=== PATIENT | female | born 1975 | race Caucasian/White ===

== ENCOUNTER 2016-05-19 13:06 | Emergency (ER) | payer MEDICAID, OTHER ==
[~2016-05-19] VITALS: Ht 167.6 cm; Wt 130.0 kg
[~2016-05-19 13:06] MED LIST: BACT800T5 PO; HYDR-3533 PO; ZOFR4TAB3 SL
[2016-05-19 13:08] VITALS: BP 143/91; PULSE 113; RESP 14; TEMP 97.9; O2SAT 98
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
[2016-05-19 14:41] LABS: BETA HCG QUANT 97289 MIU/ML (0-5)
[2016-05-19 15:46] VITALS: BP 111/62; PULSE 81; RESP 16; O2SAT 99
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
[2016-05-19 17:10] VITALS: BP 110/71; TEMP 97.8
[2016-07-21] MEDS ORDERED: PREN27TA PO (10:34)
[2016-07-21] MEDS ORDERED: ASPI-110 PO (10:34)
[2016-07-21] MEDS ORDERED: CALC500T35 PO (10:34)
[2016-07-28] MEDS ORDERED: ASPI81CH3 CHEW (17:35)
== END 2016-05-19 17:10 | disposition home or self-care (01) ==
LOC: NEPC 13:06
DX: O26.891 Other specified pregnancy related conditions, first trimester (principal); R51 Headache; M54.5 Low back pain; Z04.1 Encounter for examination and observation following transport accident
CPT/HCPCS: 76801; 84702

== ENCOUNTER → 2016-07-19 | Outpatient (CLI) | payer MEDICAID ==
[~2016-07-19] MED LIST changes: +ASPI-110 PO; +ASPI81CH3 CHEW; -BACT800T5 PO; +CALC500T35 PO; -HYDR-3533 PO; +NITR1CAP36 PO; +PREN27TA PO; -ZOFR4TAB3 SL
== END ==
LOC: HPND 10:06
PROVIDERS: ATTEND Family Medicine
DX: Z33.1 Pregnant state, incidental (principal); Z36 Encounter for antenatal screening of mother
CPT/HCPCS: 76811

== ENCOUNTER → 2016-08-01 | Outpatient (CLI) | payer MEDICAID ==
[~2016-08-01] MED LIST changes: -ASPI-110 PO
== END ==
LOC: HPND 09:33
PROVIDERS: ATTEND Family Medicine
DX: O09.522 Supervision of elderly multigravida, second trimester (principal); O28.0 Abnormal hematological finding on antenatal screening of mother
CPT/HCPCS: 76815; 76825; 76827; 93325

== ENCOUNTER → 2016-08-14 | Outpatient (CLI) | payer MEDICAID | LOC: HPND 10:52 | PROVIDERS: ATTEND Family Medicine | DX: O99.512 Diseases of the respiratory system complicating pregnancy, second trimester (principal); O09.522 Supervision of elderly multigravida, second trimester; E66.01 Morbid (severe) obesity due to excess calories; Z68.41 Body mass index [BMI] 40.0-44.9, adult | CPT/HCPCS: 76816 ==

== ENCOUNTER 2016-09-04 21:17 | Emergency (ER) | payer MEDICAID ==
[~2016-09-04 21:17] MED LIST changes: -NITR1CAP36 PO
[2016-09-04 21:30] VITALS: PULSE 112
[2016-09-04 21:31] VITALS: RESP 18
[2016-09-04 21:35] VITALS: PULSE 110; TEMP 98.1
[2016-09-04 21:36] VITALS: BP 129/71; PULSE 110
--- NOTE | 2016-09-04 22:05 | PD ---
HPI Chief Complaint decreased movement Date Seen: September 04, 2016 Travel History International Travel<30 Days: No Contact w/Intl Traveler<30Days: No Known Affected Area: No History of Present Illness HPI This is a 41y/o at 26w1d who presented to [facility] in [facility] with c/o decreased movements. Labs and ua were obtained, significant only for + Ketones. She was transferred here as there are no OB services ath that hospital. Pt denies vaginal bleeding or leakage of fluid with reports of active movements now. care at the the resident clinic, care complicated by: 1. AMA 2. proteinuria Para: 4 : 6 Miscarriage: 1 History Past Medical History Medical History: Denies Significant Hx Obstetric History Obstetric History 5 FT Past Surgical History Narrative Surgical T&A age 5 Mass excision left foot in 2007 Family History Family History: Negative Social History Alcohol Use: No Tobacco Use: No Substance Abuse: No Allergies-Medications (Allergen,Severity, Reaction): Coded Allergies: Penicillin (Verified Allergy, Severe, ANAPYHLAXIS, 09/01/16) Latex (Verified Allergy, Unknown, Rash, 09/01/16) Home Meds Active Scripts Aspirin (Aspirin 81 Low Dose)81 Mg Chew81 Mg CHEW DAILY #30 TAB Prov:Celso Leo MD R2 07/28/16 Oyster Shell (Calcium)500 Mg Tab1 Tab PO BID #60 TAB Ref 3 Prov:Celso Leo MD R2 07/21/16 Vit W/ Ferrous Fumara ( 27-0.8 mg)1 Tab Tab1 Tab PO DAILY #30 TAB Prov:Celso Leo MD R2 07/21/16 Review of Systems Except as stated in HPI: all other systems reviewed are Neg Physical Exam Vital Signs Date Time Temp Pulse Resp B/P Pulse Ox O2 Delivery O2 Flow Rate FiO2 09/04/16 21:36 110 129/71 09/04/16 21:35 110 09/04/16 21:35 98.1 09/04/16 21:31 18 09/04/16 21:30 112 Narrative GENERAL: Well-nourished, well-developed patient. SKIN: Warm and dry. HEAD: Normocephalic and atraumatic. EYES: No scleral icterus. No injection or drainage. ENT: No nasal drainage noted. Mucous membranes pink. Airway patent. NECK: Supple, trachea midline. No JVD. CARDIOVASCULAR: Regular rate and rhythm without murmurs, gallops, or rubs. RESPIRATORY: Breath sounds equal bilaterally. No accessory muscle use. BREASTS: Bilateral exam showed no masses , no retractions, no nipple discharge. ABDOMEN/GI: Abdomen soft, non-tender, bowel sounds present, no rebound, no guarding Gravid to 25 weeks size GENITOURINARY: VE Deferred FHT's: Category: appropriate for gestational age Contractions: none EXTREMITIES: No cyanosis or edema. BACK: Nontender without obvious deformity. No CVA tenderness. NEUROLOGICAL: Awake and alert. Motor and sensory grossly within normal limits. Five out of 5 muscle strength in all muscle groups. Normal speech. Data Data Vital Signs Reviewed: Yes Orders Vital Signs (Adult) .ON ADMISSION (09/04/16 21:19) ^ Labor Status (09/04/16 21:19) ^ Non Stress Test (09/04/16 21:19) MDM Medical Record Reviewed: No Interpretation(s) 41y/o at 26w1d who presents for evaluation of decreased movements. -reassuring status, active fetus on monitor -no evidence of PTL Plan d/c home increased po fluids discussed kick count in depth Diagnosis Diagnosis: Primary Impression: Decreased movement affecting management of in second trimester Qualified Code: O36.8120 - Decreased movement affecting management of in second trimester, not applicable or unspecified fetus Additional Impressions: Advanced maternal age in multigravida Qualified Code: O09.522 - Advanced maternal age in multigravida, second trimester Grand multipara in labor in second trimester Disposition: 01 DISCHARGE HOME Patient Instructions: Movement (ED) Sol Durand MD September 04, 2016 22:04
== END 2016-09-04 21:59 | disposition home or self-care (01) ==
LOC: HOBED 21:17
DX: O36.8120 Decreased fetal movements, second trimester, not applicable or unspecified (principal); Z3A.26 26 weeks gestation of pregnancy
CPT/HCPCS: 99284

== ENCOUNTER → 2016-09-11 | Outpatient (CLI) | payer MEDICAID ==
[~2016-09-11] MED LIST changes: +NITR1CAP36 PO
== END ==
LOC: HPND 10:28
PROVIDERS: ATTEND Family Medicine
DX: O09.522 Supervision of elderly multigravida, second trimester (principal); O09.512 Supervision of elderly primigravida, second trimester; E66.01 Morbid (severe) obesity due to excess calories; Z68.41 Body mass index [BMI] 40.0-44.9, adult; Z3A.30 30 weeks gestation of pregnancy
CPT/HCPCS: 76816

== ENCOUNTER → 2016-10-09 | Outpatient (CLI) | payer MEDICAID | LOC: HPND 10:12 | PROVIDERS: ATTEND Family Medicine | DX: O09.523 Supervision of elderly multigravida, third trimester (principal); O24.419 Gestational diabetes mellitus in pregnancy, unspecified control; O99.213 Obesity complicating pregnancy, third trimester; E66.01 Morbid (severe) obesity due to excess calories; Z68.41 Body mass index [BMI] 40.0-44.9, adult; Z3A.31 31 weeks gestation of pregnancy | CPT/HCPCS: 76816 ==

== ENCOUNTER 2016-10-11 11:42 | Emergency (ER) | payer MEDICAID ==
[2016-10-11] VITALS (8 sets, daily range): BP systolic 115–148; BP diastolic 69–106; PULSE 106–127; RESP 17–18; TEMP 98.2
[~2016-10-11 11:42] MED LIST changes: -NITR1CAP36 PO
--- NOTE | 2016-10-11 12:27 | PD ---
HPI Chief Complaint Protein in urine Date Seen: Oct 11, 2016 Time Seen: 12:18 (Roz Grullon MD R1) Travel History International Travel<30 Days: No Contact w/Intl Traveler<30Days: No (Roz Grullon MD R1) History of Present Illness HPI Patient is a 41-year-old at 313/7 weeks today, who was sent over from the [facility] clinic by Dr. Matt Leo due to protein in the urine and steadily rising blood pressures and office visits. BP in office today was 134/78. Patient states she had a headache last night for which she took an aspirin and went to bed. She denies any vision changes, shortness of breath, chest pain, nausea, vomiting, right upper quadrant pain. She has been across the entire upper abdomen, intermittent, sharp. She endorses hand and feet swelling, with no acute changes. She has a BP machine at home and noted the most recent highest blood pressure to be 148/78. care has been complicated by gestational diabetes which is diet controlled, and a cardiac murmur. The patient is on 81 mg aspirin daily and vitamins. (Roz Grullon MD R1) History Past Medical History Narrative Medical Cardiac murmur (Roz Grullon MD R1) Obstetric History Obstetric History 4 term vaginal deliveries One elective (Roz Grullon MD R1) Past Surgical History Narrative Surgical Tonsillectomy, ear tubes, adenoidectomy (Roz Grullon MD R1) Family History Narrative Family History Mother with heart disease, maternal and paternal grandparents with diabetes ( Roz Grullon MD R1) Social History Alcohol Use: No Tobacco Use: No Substance Abuse: No (Roz Grullon MD R1) Allergies-Medications (Allergen,Severity, Reaction): Coded Allergies: Penicillin (Verified Allergy, Severe, ANAPYHLAXIS, 10/11/16) Latex (Verified Allergy, Unknown, Rash, 10/11/16) Home Meds Active Scripts Nitrofurantoin Macrocrystal 100 Mg Ajy220 Mg PO QID #28 CAP Ref 0 Prov:Roz Grullon MD R1 10/11/16 Aspirin (Aspirin 81 Low Dose)81 Mg Chew81 Mg CHEW DAILY #30 TAB Prov:Celso Leo MD R2 07/28/16 Oyster Shell (Calcium)500 Mg Tab1 Tab PO BID #60 TAB Ref 3 Prov:Celso Leo MD R2 07/21/16 Vit W/ Ferrous Fumara ( 27-0.8 mg)1 Tab Tab1 Tab PO DAILY #30 TAB Prov:Celso Leo MD R2 07/21/16 Review of Systems Except as stated in HPI: all other systems reviewed are Neg (Roz Grullon MD R1) Physical Exam Vital Signs Date Time Temp Pulse Resp B/P Pulse Ox O2 Delivery O2 Flow Rate FiO2 10/11/16 12:00 18 10/11/16 11:59 127 148/78 10/11/16 11:57 124 144/106 Narrative GENERAL: Well-nourished, well-developed female in no apparent distress. Obese. SKIN: Warm and dry. No rashes. HEAD: Normocephalic and atraumatic. EYES: No scleral icterus. No injection or drainage. ENT: No nasal drainage noted. Mucous membranes pink. Airway patent. NECK: Supple, trachea midline. No JVD. CARDIOVASCULAR: Regular rate and rhythm without murmurs, gallops, or rubs. RESPIRATORY: Breath sounds equal bilaterally. No accessory muscle use. ABDOMEN/GI: Abdomen obese, gravid, nontender. No rebound or guarding. GENITOURINARY: Deferred External Genitalia: intact and normal in appearance Uterine Contractions: Absent FHT's: Category: 1 Baseline: 130 Reactive:150 Variability: mod Decels: absent EXTREMITIES: No cyanosis or edema. BACK: Nontender without obvious deformity. No CVA tenderness. NEUROLOGICAL: Awake and alert. Motor and sensory grossly within normal limits. Five out of 5 muscle strength in all muscle groups. Normal speech. (Roz Grullon MD R1) Data Data Vital Signs Reviewed: Yes (BP 148/78, pulse 127) Orders Vital Signs (Adult) .ON ADMISSION (10/11/16 11:56) ^ Labor Status (10/11/16 11:56) Urinalysis - C+S If Indicated (10/11/16 11:56) ^ Non Stress Test (10/11/16 11:56) ^ Hydration (10/11/16 11:56) Cbc No Diff, Includes Plts (10/11/16 11:56) Comprehensive Metabolic Panel (10/11/16 11:56) Uric Acid (10/11/16 11:56) Protein Creat Ratio, Random Ur (10/11/16 11:57) (Roz Grullon MD R1) MDM Medical Record Reviewed: Yes Narrative Course / MDM 41-year-old at 31 and 3/7 weeks, EDC 12/10/16, with GDM who presents from the office for further workup of protein in urine and elevated blood pressure. Intrauterine : Category 1 tracing No contractions Monitor heart tones Routine care Gestational Hypertension Blood pressures normally 120s/70s noted to be 148/78 at home and 130s/80s in office today. She notes a resolved headache last night. Repeat BPs in the 110s/80s range, within normal limits Rule out preeclampsia: CBC within normal limits, CMP within normal limits, urinalysis consistent with UTI, urine protein/creatinine elevated at 0.22, uric acid within normal Serial BP monitoring recommended home with her home blood pressure monitor 24 hour urine protein indicated. She has had this done at approximately 20 weeks gestation, not diagnostic. Will treat for UTI and recommended ordering 24 hour protein as outpatient and rechecking urine protein/creatinine ratio Urinary tract infection Based on urine notable for moderate leukocyte esterase, 18 WBCs, moderate bacteria Will treat with Macrobid 100 mg 4 times a day for 7 days Gestational diabetes Diet-controlled Counseled on importance of checking blood sugars Seen and discussed with Dr. Durand (Roz Grullon MD R1) Attending Attestation Pt seen and evaluated, labs reviewed. BPs significantly elevated from clinic values. Large cuff used and BPs: 116/69, 115/72, in range with clinic values. Pt with 24h urine collection in 06/2016, would recommend repeat soon. Would need workup for proteinuria. (Sol Durand MD) Diagnosis Diagnosis: Primary Impression: Hypertension affecting in third trimester Additional Impression: Urine protein increased Disposition: 01 DISCHARGE HOME Condition: Stable Scripts Nitrofurantoin Macrocrystal 100 Mg [id number] Mg PO QID #28 CAP Ref 0 Prov:Roz Grullon MD R1 10/11/16 Patient Instructions: Preeclampsia (ED) Roz Grullon MD R1 Oct 11, 2016 12:27 Sol Durand MD Oct 11, 2016 15:27
[2016-10-11 12:40] LABS: HEMATOCRIT 33.5 % (35.0-46.0); MEAN CELL VOLUME 75.8 FL (80.0-100.0); MEAN CORPUSCULAR HEMOGLOBIN 24.4 PG (27.0-34.0); MEAN CORPUSCULAR HGB CONC 32.2 % (32.0-36.0); PLATELET COUNT 208 TH/MM3 (150-450); RED BLOOD COUNT 4.42 MIL/MM3 (4.00-5.30); RED CELL DISTRIBUTION WIDTH 16.2 % (11.6-17.2); REVIEW FLAG FINAL; WHITE BLOOD COUNT 8.7 TH/MM3 (4.0-11.0)
[2016-10-11 13:02] LABS: ANION GAP 9 MEQ/L (5-15); AST (GOT) 24 U/L (15-37); BICARBONATE 22.5 MEQ/L (21.0-32.0); BLOOD UREA NITROGEN 7 MG/DL (7-18); CHLORIDE 109 MEQ/L (98-107); GLOMERULAR FILTRATION RATE 112 ML/MIN (>89); POTASSIUM 4.3 MEQ/L (3.5-5.1); SODIUM (NA) 140 MEQ/L (136-145); URIC ACID 3.6 MG/DL (2.6-6.0)
[2016-10-11 13:05] LABS: ALKALINE PHOSPHATASE 91 U/L (45-117); ALT (GPT) 20 U/L (10-53); TOTAL BILIRUBIN ADULT 0.2 MG/DL (0.2-1.0)
[2016-10-11 13:41] LABS: BACTERIA, URINE MOD /hpf; BLOOD, URINE MOD (NEG); CALCIUM OXALATE CRYSTALS,URINE MOD /hpf; COMMENT (UR) CULTURE INDICATED; CULTURE IF INDICATED CULTURE INDICATED; GLUCOSE,URINE TRACE mg/dL (NEG); KETONE, URINE NEG (NEG); MUCUS URINE FEW /lpf (OCC); NITRITE,URINE NEG (NEG); SQUAMOUS EPITHELIAL CELL URINE 11 /hpf (0-5); URINE COLOR YELLOW (YELLW/STRAW)
[2016-10-11] MEDS ORDERED: NITR1CAP36 PO (14:35)
== END 2016-10-11 15:06 | disposition home or self-care (01) ==
LOC: HOBED 11:42
DX: O16.3 Unspecified maternal hypertension, third trimester (principal); O12.13 Gestational proteinuria, third trimester; O24.419 Gestational diabetes mellitus in pregnancy, unspecified control; O23.43 Unspecified infection of urinary tract in pregnancy, third trimester; M79.89 Other specified soft tissue disorders; R01.1 Cardiac murmur, unspecified; Z3A.31 31 weeks gestation of pregnancy; Z79.899 Other long term (current) drug therapy; Z79.82 Long term (current) use of aspirin
CPT/HCPCS: 80053; 81001; 82570; 84156; 84550; 85027; 87086; 99284

== ENCOUNTER → 2016-11-06 | Outpatient (CLI) | payer MEDICAID | LOC: HPND 13:24 | PROVIDERS: ATTEND Family Medicine | DX: O09.523 Supervision of elderly multigravida, third trimester (principal); O24.410 Gestational diabetes mellitus in pregnancy, diet controlled; O99.213 Obesity complicating pregnancy, third trimester; E66.01 Morbid (severe) obesity due to excess calories; Z68.41 Body mass index [BMI] 40.0-44.9, adult | CPT/HCPCS: 76816 ==

== ENCOUNTER 2016-11-23 13:24 | Observation (INO) | payer MEDICAID ==
[2016-11-23] MEDS ORDERED: LACTATED RINGER'S 1000 ML INJ 1,000 ML IV SCH (13:44)
[2016-11-23] MEDS ORDERED: TERBUTALINE INJ 1 MG/ML AMP SQ ONE (13:45)
--- NOTE | 2016-11-23 15:12 | HHI.HP ---
History & Physical H&P S: Patient is a 41-year-old at 37 weeks and 4 days who presents for external version. She gets her care with Dr. Matt Leo. Patient just had an appointment with Dr. Leo and then an appointment with OB diagnostics, where she had an ultrasound that showed a transverse lie. Of note, patient does take a baby aspirin daily. O: Gen.: Obese female lying in bed in no acute distress GI: Obese gravid abdomen : Irregular mild contractions as frequently as about every 2 minutes noted. Category 1 tracing with baseline of 130 bpm, good reactivity, moderate variability, no decelerations noted. Imaging: Bedside ultrasound performed which showed transverse lie with baby's head in the upper right quadrant and an baby's butt in the left upper quadrant. A/P: Patient is a 41-year-old at 37 weeks and 4 days with a history of gestational diabetes, hypertension who presents for external version. 1. Transverse lie CBC, type and screen LR IV Terbutaline 0.25 mg subcutaneous 1 Fentanyl if needed Monitor heart rate Monitor labor status Monitor vital signs 2. UTI on UA Discharged with prescription for Macrobid 100 mg by mouth twice a day for 7 days 3. History of hypertension CMP, uric acid, UA, bp monitoring 4. Diet-controlled gestational diabetes Blood glucose monitoring Addendum: External version performed by Dr. Villagran was successful. position confirmed to be vertex by bedside ultrasound. Plan to continue observation and monitoring. Will repeat bedside ultrasound prior to discharge. Cervical exam was long, thick, and closed. Second addendum: Repeat US showed that baby flipped back to breech position. - repeat US in a week - if still breech, can repeat external version. If baby flips to vertex, can offer IOL. Patient seen and discussed with Dr. Villagran. D/w Dr. Leo. David Gonzales MD R1 Nov 23, 2016 15:12
[2016-11-23 15:15] VITALS: RESP 17
[2016-11-23 15:34] LABS: HEMATOCRIT 34.7 % (35.0-46.0); MEAN CELL VOLUME 72.8 FL (80.0-100.0); MEAN CORPUSCULAR HEMOGLOBIN 22.9 PG (27.0-34.0); MEAN CORPUSCULAR HGB CONC 31.5 % (32.0-36.0); PLATELET COUNT 173 TH/MM3 (150-450); RED BLOOD COUNT 4.77 MIL/MM3 (4.00-5.30); RED CELL DISTRIBUTION WIDTH 18.3 % (11.6-17.2); REVIEW FLAG FINAL; WHITE BLOOD COUNT 9.2 TH/MM3 (4.0-11.0)
[2016-11-23 15:48] LABS: BACTERIA, URINE MANY /hpf; BLOOD, URINE SMALL (NEG); CALCIUM OXALATE CRYSTALS,URINE RARE /hpf; COMMENT (UR) CULTURE INDICATED; CULTURE IF INDICATED CULTURE INDICATED; GLUCOSE,URINE TRACE mg/dL (NEG); KETONE, URINE 40 mg/dL (NEG); MUCUS URINE MANY /lpf (OCC); NITRITE,URINE NEG (NEG); SQUAMOUS EPITHELIAL CELL URINE 34 /hpf (0-5); TRANSITIONAL EPI CELLS, URINE 2 /hpf; URINE COLOR ORANGE (YELLW/STRAW)
[2016-11-23 15:50] LABS: ALT (GPT) 14 U/L (10-53); ANION GAP 12 MEQ/L (5-15); AST (GOT) 20 U/L (15-37); BICARBONATE 21.4 MEQ/L (21.0-32.0); BLOOD UREA NITROGEN 8 MG/DL (7-18); CHLORIDE 107 MEQ/L (98-107); GLOMERULAR FILTRATION RATE 86 ML/MIN (>89); POTASSIUM 4.1 MEQ/L (3.5-5.1); SODIUM (NA) 140 MEQ/L (136-145)
[2016-11-23 15:53] LABS: ALKALINE PHOSPHATASE 144 U/L (45-117); TOTAL BILIRUBIN ADULT 0.3 MG/DL (0.2-1.0)
[2016-11-23] MEDS ORDERED: NITR1CAP36 PO (15:54)
--- NOTE | 2016-11-23 15:56 | HHI.DCPOC ---
Discharge Care Plan Diagnosis: (1) Transverse lie of fetus Report Symptoms to Your Doctor -Temperature above 100.5 degrees -Redness, of incision or excessive or foul smelling drainage -Unusual pain or calf pain -Increased vaginal bleeding -Painful or difficulty urinating -Feelings of extreme sadness or anxiety after 2 weeks Goals to Promote Your Health * To prevent worsening of your condition and complications, please take your medications as prescribed. * To maintain your health at the optimal level, please follow up with your doctor. Directions to Meet Your Goals Take your medications as prescribed Follow your dietary instruction Follow activity as directed Ensure plenty of rest for recovery Drink fluids for hydration Keep your appointments as scheduled Take your immunizations and boosters as scheduled If your symptoms worsen call your PCP, if no PCP go to Urgent Care Center or Emergency Room Smoking is Dangerous to Your Health. Avoid second hand smoke Call the 24-hour crisis hotline for domestic abuse at David Gonzales MD R1 Nov 23, 2016 15:56
[2016-11-23 16:00] VITALS: BP 152/84; PULSE 95; RESP 18
[2016-11-23 16:08] LABS: URIC ACID 5.1 MG/DL (2.6-6.0)
--- NOTE | 2016-11-23 16:30 | PD.CONS ---
History & Physical H&P Patient 41-year-old white female at 37 weeks 4 days referred from the family medicine clinic for external cephalic version or breech, ultrasound patient baby transverse with head to the right repeat ultrasound showed breech. Her on OB ED baby is in a backup transverse lie. Head to The right with only small parts and lower uterine segment normal heart rate reactive NST noted patient has polyhydramnios and gestational diabetes with diet control. Ultrasound done and confirmed position. Patient was given subcutaneous terbutaline to relax the uterus. IV access noted. This laboratory done CBCs type and screen, CBC is within normal limits. Procedure-external cephalic version done under ultrasound guidance with movement of the right sided the head in the right upper quadrant down into the mid and then lower uterine segment. Pressure on the baby's bottom pushed that structure up into the fundus and the head went in the lower uterine segment without difficulty. NST was done after which is reactive , and the ultrasound prior to the patient being discharged be done to confirm baby still cephalic presentation. Joseph Villagran II, MD Nov 23, 2016 16:29
== END 2016-11-23 17:31 | disposition home or self-care (01) ==
LOC: H2EB 13:24
PROVIDERS: ADMIT Obstetrics & Gynecology Maternal & Fetal Medicine; ATTEND Obstetrics & Gynecology Maternal & Fetal Medicine
DX: O32.2XX0 Maternal care for transverse and oblique lie, not applicable or unspecified (principal); O99.344 Other mental disorders complicating childbirth; F41.9 Anxiety disorder, unspecified; O09.523 Supervision of elderly multigravida, third trimester; O24.410 Gestational diabetes mellitus in pregnancy, diet controlled; O23.43 Unspecified infection of urinary tract in pregnancy, third trimester; O16.3 Unspecified maternal hypertension, third trimester; Z3A.37 37 weeks gestation of pregnancy
CPT/HCPCS: 80053; 81001; 84550; 85027; 86850; 86900; 86901; 87086; G0378; J3105; J7120

== ENCOUNTER 2016-11-30 13:27 | Inpatient (IN) | payer MEDICAID ==
[~2016-11-30] VITALS: Ht 167.6 cm; Wt 130.6 kg
[2016-11-30] VITALS (13 sets, daily range): BP systolic 106–169; BP diastolic 73–82; PULSE 100–110; RESP 18; TEMP 98–98.4
[~2016-11-30 13:27] MED LIST changes: +NITR1CAP36 PO
[2016-11-30] MEDS ORDERED: TERBUTALINE INJ 1 MG/ML AMP SQ ONE (15:30)
[2016-11-30 15:56] LABS: ALT (GPT) 16 U/L (10-53); ANION GAP 10 MEQ/L (5-15); AST (GOT) 22 U/L (15-37); BICARBONATE 19.6 MEQ/L (21.0-32.0); BLOOD UREA NITROGEN 7 MG/DL (7-18); CHLORIDE 110 MEQ/L (98-107); GLOMERULAR FILTRATION RATE 112 ML/MIN (>89); POTASSIUM 3.9 MEQ/L (3.5-5.1); SODIUM (NA) 140 MEQ/L (136-145)
[2016-11-30 15:58] LABS: ALKALINE PHOSPHATASE 142 U/L (45-117); TOTAL BILIRUBIN ADULT 0.3 MG/DL (0.2-1.0)
[2016-11-30] MEDS ORDERED: LACTATED RINGER'S 1000 ML INJ 1,000 ML IV PRN (16:19)
[2016-11-30] MEDS: LACTATED RINGER'S 1000 ML INJ 1,000 ML IV SCH ×2 (16:19→17:44)
[2016-11-30] MEDS ORDERED: CITRIC ACID-SODIUM CITRATE LIQ 30 ML UDC PO SCH (16:30)
[2016-11-30] MEDS ORDERED: LIDOCAINE HCL 1% 50 ML VIAL I-DERMAL PRN (16:30)
[2016-11-30] MEDS ORDERED: SODIUM CHLORID 0.9% 500 ML INJ 500 ML IV PRN (16:30)
[2016-11-30] MEDS ORDERED: OXYTOCIN 30 UNITS-500ML PREMIX 500 ML IV SCH ×3 (16:30)
[2016-11-30] MEDS ORDERED: ONDANSETRON HCL 4 MG/2 ML VIAL IV PRN (16:30)
[2016-11-30] MEDS ORDERED: SODIUM CHLOR 0.9% 1000 ML INJ 1,000 ML IV PRN (16:39)
--- NOTE | 2016-11-30 16:41 | HHI.HP ---
History & Physical H&P History & Physical History & Physical H&P S: Patient is a 41-year-old at 38 weeks and 4 days who presents for external version. External version was attempted last week; version was successful but baby moved back to transverse position before discharge. Patient returns today for second attempt. Of note, she gets her care with Dr. Matt Leo. Patient does take a baby aspirin daily. O: Blood pressure 124/69 Gen.: Obese female lying in bed in no acute distress GI: Obese gravid abdomen : Contractions q6min; category 1 tracing with baseline of 125 bpm, good reactivity, moderate variability, no decelerations noted. Imaging: Bedside ultrasound performed which showed transverse lie with baby's head in the upper right quadrant and an baby's butt in the left upper quadrant. A/P: Patient is a 41-year-old at 38 weeks and 4 days with a history of gestational diabetes, hypertension who presents for external version. 1. Transverse lie CBC, type and screen LR IV Terbutaline 0.25 mg subcutaneous 1 Fentanyl if needed Monitor heart rate Monitor labor status Monitor vital signs 2. History of hypertension CMP, UA, bp monitoring 3. Diet-controlled gestational diabetes Blood glucose monitoring Patient seen and discussed with Dr. Villagran. D/w Dr. Leo. Lindsey Darden MD R1 Nov 30, 2016 16:41
[2016-11-30 16:47] LABS: BACTERIA, URINE FEW /hpf; BLOOD, URINE NEG (NEG); COMMENT (UR) CULT NOT INDICATED; CULTURE IF INDICATED CULT NOT INDICATED; GLUCOSE,URINE NEG (NEG); KETONE, URINE 40 mg/dL (NEG); MUCUS URINE FEW /lpf (OCC); NITRITE,URINE NEG (NEG); SQUAMOUS EPITHELIAL CELL URINE 7 /hpf (0-5); URINE COLOR YELLOW (YELLW/STRAW)
[2016-11-30 18:00] LABS: AUTOMATED NEUTROPHIL # 6.7 TH/MM3 (1.8-7.7); BASOPHIL % 0.2 % (0.0-2.0); EOSINOPHIL % 0.2 % (0.0-4.0); HEMATOCRIT 30.9 % (35.0-46.0); HEMO FLAGS DIFF FINAL; LYMPH % 18.1 % (9.0-44.0); LYMPHOCYTE # 1.6 TH/MM3 (1.0-4.8); MEAN CELL VOLUME 71.4 FL (80.0-100.0); MEAN CORPUSCULAR HEMOGLOBIN 23.2 PG (27.0-34.0); MEAN CORPUSCULAR HGB CONC 32.5 % (32.0-36.0); MONO % 6.1 % (0.0-8.0); NEUT % 75.4 % (16.0-70.0); PLATELET COUNT 150 TH/MM3 (150-450); RED BLOOD COUNT 4.33 MIL/MM3 (4.00-5.30); RED CELL DISTRIBUTION WIDTH 18.5 % (11.6-17.2); WHITE BLOOD COUNT 8.9 TH/MM3 (4.0-11.0)
[2016-11-30] MEDS ORDERED: hydrALAZINE HCL 20 MG/ML VIAL ONE (18:39)
[2016-11-30] MEDS ORDERED: hydrALAZINE HCL 20 MG/ML VIAL IV PUSH ONE (19:00)
--- NOTE | 2016-11-30 19:11 | PD.LABORPN ---
Subjective Subjective Is a procedure note this patient done at approximately 4 PM today External cephalic version Patient was breech to backup transverse lie, presented confirm this earlier in the day. Positive polyhydramnios. Patient greatly desires a vaginal delivery and does not want a at this time. This baby on ultrasound is approximately 10 pounds, and last week we did a successful version but only for an hour and the baby flipped back breech, the patient will have to wait at least a week when she is 38 and half weeks to retry and that is what we did today. Patient was placed in the bathroom ultrasound brought and ultrasound confirmed the baby in a backup transverse lie with the head to the maternal right upper quadrant. External version was performed by moving the baby's head down in the abdomen toward the right lower quadrant and holding the baby's bottom steady while the head was forced into the pelvis this was done without the extreme effort. And was tolerated well by the patient. The baby's head was in the pelvis was we performed artificial rupture the membranes with copious clear fluid noted cervix was forced open he was initially closed was forced open to fingertip to allow rupture the membranes heart rate tracing is reactive before and after the procedure. An ultrasound confirmed the baby was in a cephalic presentation after the procedure. Begin labor induction Objective Vital Signs Vital Signs Date Time Temp Pulse Resp B/P Pulse Ox O2 Delivery O2 Flow Rate FiO2 11/30/16 18:55 151/78 11/30/16 18:50 154/73 11/30/16 18:20 103 18 169/81 11/30/16 17:20 105 18 142/75 11/30/16 15:20 98.4 100 18 Objective Pelvic Exam: Cervix: [-] Dilatation: [-] Effacement: [-] Station: [-] Presentation: [-] Membranes: [intact or ruptured] Uterine Contractions: [-] FHT's: Category: [-] Baseline: [-] Reactive: [-] Variability: [-] Decels: [-] Joseph Villagran II, MD Nov 30, 2016 19:11
--- NOTE | 2016-11-30 22:19 | PD.LABORPN ---
Subjective Subjective Patient lying comfortably in bed. Feeling contractions. She is eager to eat her chicken broth. She does not have any specific complaints at this time. Objective Vital Signs Vital Signs Date Time Temp Pulse Resp B/P Pulse Ox O2 Delivery O2 Flow Rate FiO2 11/30/16 22:02 18 11/30/16 21:14 18 11/30/16 20:50 18 11/30/16 20:05 18 11/30/16 19:35 144/80 11/30/16 19:35 100 18 11/30/16 19:20 18 11/30/16 19:20 98.0 11/30/16 18:55 151/78 11/30/16 18:50 154/73 11/30/16 18:20 103 18 169/81 11/30/16 17:20 105 18 142/75 11/30/16 15:20 98.4 100 18 Objective Pelvic Exam: Cervix: [-] Dilatation: 0-1 Effacement: [-] Station: [-] Presentation: vertex Membranes: ruptured Uterine Contractions: q2-3m FHT's: Category: I Baseline: 120s Reactive: yes Variability: mod Decels: none Assessment/Plan Assessment and Plan Very pleasant 41 year old woman at 38/4 weeks gestation with a history of gestational diabetes, hypertension presented for external version and admitted to L&D. 1. IUP - Category I tracing - Contractions q2-3m - Cervix 0-1 cm, s/p AROM - GBS negative - US performed by Dr. Villagran at 21:00 demonstrating vertex position - Continue expectant management Hay Art MD R2 Nov 30, 2016 22:19
[2016-12-01] VITALS (41 sets, daily range): BP systolic 99–164; BP diastolic 64–91; PULSE 80–121; RESP 18; TEMP 98.1–99
[2016-12-01] MEDS ORDERED: fentaNYL 2MCG-BUPIV 0.125% INJ 100 ML ONE ×2 (00:58→05:26)
[2016-12-01] MEDS ORDERED: ePHEDrine/NS 25 MG/5 ML SYR ONE (00:59)
[2016-12-01] MEDS ORDERED: TERBUTALINE INJ 1 MG/ML AMP ONE (07:39)
[2016-12-01 08:15] LABS: BLOOD GAS BASE EXCESS -11.8 mmol/L (-2-2); BLOOD GAS O2 HGB SATURATION 18 % (90-100); CORD BLOOD GAS HCO3 17 mmol/L (21-29); CORD BLOOD GAS PCO2 65 mmHG (34-78); CORD BLOOD GAS PH 7.05 (7.14-7.42); CORD BLOOD GAS PO2 17 mmHG (3.0-40.0); DRAW SITE CORD BLOOD; STAT NO
--- NOTE | 2016-12-01 08:23 | PD.OB.DELI ---
Anesthesia: Epidural Episiotomy: None Vaginal Delivery: Normal Presentation: Occiput anterior Nuchal Cord: x1 Delayed cord clamping (45 sec): Yes : Male One Minute : 7 Five Minute : 8 Weight: 10 lb 0 oz Placenta: Spontaneous delivery, Intact, 3 vessel cord Laceration: No lacerations Estimated blood loss: 50-100 cc Celso Leo MD, R3 Dec 01, 2016 08:23
[2016-12-01] MEDS ORDERED: SODIUM CHLORIDE 0.9% FLUSH 10 ML FLUSH IV FLUSH PRN (08:30)
[2016-12-01] MEDS ORDERED: WITCH HAZEL 50%/GLYCERIN 12.5% 40 PAD JAR TOPICAL PRN (08:30)
[2016-12-01] MEDS ORDERED: ALUMINUM/MAGNESIUM/SIMETH 30 ML CUP PO PRN (08:30)
[2016-12-01] MEDS ORDERED: ONDANSETRON ODT 4 MG TAB PO PRN (08:30)
[2016-12-01] MEDS ORDERED: BENZOCAINE 20% TOPICAL SPRAY 60 ML CAN TOPICAL PRN (08:30)
[2016-12-01] MEDS ORDERED: ACETAMINOPHEN 325 MG TAB PO PRN (08:30)
[2016-12-01] MEDS ORDERED: oxyCODONE/ACETAMINOPHEN 5 MG/325 MG TAB PO PRN (08:30)
[2016-12-01] MEDS ORDERED: DOCUSATE SODIUM 50 MG/SENNA 8.6 MG TAB PO PRN (08:30)
[2016-12-01] MEDS ORDERED: OXYTOCIN 30 UNITS-500ML PREMIX 500 ML IV SCH (09:00)
[2016-12-01] MEDS ORDERED: SODIUM CHLORIDE 0.9% FLUSH 10 ML FLUSH IV FLUSH SCH (09:00)
[2016-12-01] MEDS: IBUPROFEN 600 MG TAB PO PRN ×2 (10:51→22:31)
[2016-12-01] MEDS ORDERED: MEASLES, MUMPS, RUBELLA VACCINE 0.5 ML VIAL SQ ONE (16:00)
[2016-12-01] MEDS ORDERED: DIPHTH/TETANUS/ACEL PERTUSSIS (BOOSTER) 0.5 ML VIAL/PFS IM ONE (16:00)
[2016-12-01] MEDS ORDERED: ZOLPIDEM TARTRATE 5 MG TAB PO PRN (21:00)
--- NOTE | 2016-12-02 07:09 | HHI.OB ---
Subjective Post Day: 1 Remarks Patient is doing well this morning. She is ambulating and voiding without difficulty. She is passing gas. She is in no pain. Her vaginal bleeding is less than a normal period. She denies fever, shortness of breath. She would like to go home today. (Celso Leo MD, R3) Objective Vitals/I&O Vital Signs Date Time Temp Pulse Resp B/P Pulse Ox O2 Delivery O2 Flow Rate FiO2 12/01/16 20:05 98.5 86 18 12/01/16 20:05 116/72 12/01/16 10:55 80 18 148/73 12/01/16 10:55 98.5 12/01/16 09:55 94 18 12/01/16 09:55 159/69 12/01/16 09:40 85 164/76 12/01/16 09:40 18 12/01/16 09:25 105 18 158/73 12/01/16 09:10 150/82 12/01/16 09:10 101 18 12/01/16 08:55 105 18 150/80 12/01/16 08:40 98.4 111 18 115/73 12/01/16 08:25 121 18 148/73 12/01/16 07:48 136/74 12/01/16 07:48 97 12/01/16 07:35 99.0 Objective Remarks GENERAL: Well-nourished, well-developed patient. CARDIOVASCULAR: Regular rate and rhythm without murmurs, gallops, or rubs. RESPIRATORY: Breath sounds equal bilaterally. No accessory muscle use. ABDOMEN/GI: Abdomen soft, non-tender. Fundus: Firm, non-tender at umbilicus. GENITOURINARY: Light to moderate bleeding. EXTREMITIES: No cyanosis or edema, non-tender, without signs of DVT. Medications and IVs Current Medications Medications (Trade) Dose Ordered Sig/Jesus Route Start Time Stop Time Status Last Admin (NS Flush) 2 ml BID IV FLUSH 12/01/16 09:00 (NS Flush) 2 ml UNSCH PRN IV FLUSH 12/01/16 08:30 (Tylenol) 650 mg Q4H PRN PO 12/01/16 08:30 (Motrin) 600 mg Q6H PRN PO 12/01/16 08:30 12/01/16 22:31 (Percocet 5-325 Mg) 2 tab Q4H PRN PO 12/01/16 08:30 (Americaine 20% Top Spr) 1 spray Q4H PRN TOPICAL 12/01/16 08:30 (Tucks Pads) 1 applic QID PRN TOPICAL 12/01/16 08:30 (Ruth-Colace) 2 tab Q12H PRN PO 12/01/16 08:30 (Ambien) 5 mg HS PRN PO 12/01/16 21:00 (Mag-Al Plus Susp Liq) 15 ml Q8H PRN PO 12/01/16 08:30 (Zofran Odt) 4 mg Q6H PRN PO 12/01/16 08:30 (Celso Leo MD, R3) Assessment/Plan Assessment and Plan 41 year old PPD1 1. Care - AFVSS since delivery - Motrin prn pain - Encouraged OOB, as tolerated - Pelvic rest x 6 weeks - Will f/u with me in 4 weeks - Anticipate d/c today We'll discuss with OB hospitalist Discharge Planning Likely today (Celso Leo MD, R3) Attending Attestation Case reviewed by me. (Jose Gaston MD) Celso Leo MD, R3 Dec 02, 2016 07:09 Jose Gaston MD Dec 02, 2016 08:34
[2016-12-02] MEDS ORDERED: IBUP-232 PO (07:10)
[2016-12-02] MEDS ORDERED: SENN1TAB PO (07:10)
--- NOTE | 2016-12-02 07:11 | HHI.DCPOC ---
Discharge Care Plan Diagnosis: (1) Vaginal delivery Report Symptoms to Your Doctor -Temperature above 100.5 degrees -Redness, of incision or excessive or foul smelling drainage -Unusual pain or calf pain -Increased vaginal bleeding -Painful or difficulty urinating -Feelings of extreme sadness or anxiety after 2 weeks Goals to Promote Your Health * To prevent worsening of your condition and complications * To maintain your health at the optimal level Directions to Meet Your Goals Take your medications as prescribed Follow your dietary instruction Follow activity as directed Ensure plenty of rest for recovery Drink fluids for hydration Keep your appointments as scheduled Take your immunizations and boosters as scheduled If your symptoms worsen call your PCP, if no PCP go to Urgent Care Center or Emergency Room Smoking is Dangerous to Your Health. Avoid second hand smoke Call the 24-hour crisis hotline for domestic abuse at Celso Leo MD, R3 Dec 02, 2016 07:11 Jose Gaston MD Dec 02, 2016 08:39
[2016-12-02 07:40] VITALS: BP 127/74; PULSE 98; RESP 18; TEMP 98.3
== END 2016-12-02 14:20 | disposition home or self-care (01) | DRG 774 ==
LOC: H2EB 13:27 → OBSVTOIN 16:12 → H1EA 12-01 10:19
PROVIDERS: ADMIT Obstetrics & Gynecology Maternal & Fetal Medicine; ATTEND Obstetrics & Gynecology Maternal & Fetal Medicine
PROC: 10S0XZZ Reposition Products of Conception, External Approach (ICD-10-PCS; 2016-11-30)
PROC: 10907ZC Drainage of Amniotic Fluid, Therapeutic from Products of Conception, Via Natural or Artificial Opening (ICD-10-PCS; 2016-11-30)
PROC: 10E0XZZ Delivery of Products of Conception, External Approach (ICD-10-PCS; principal; 2016-12-01)
DX: O32.2XX0 Maternal care for transverse and oblique lie, not applicable or unspecified (principal); O10.92 Unspecified pre-existing hypertension complicating childbirth; O40.3XX0 Polyhydramnios, third trimester, not applicable or unspecified; O24.420 Gestational diabetes mellitus in childbirth, diet controlled; O69.81X0 Labor and delivery complicated by cord around neck, without compression, not applicable or unspecified; Z37.0 Single live birth; Z3A.38 38 weeks gestation of pregnancy
CPT/HCPCS: 76816; 76818; 80053; 81001; 82805; 85025; 86850; 86900; 86901; J0360; J2405; J2590; J3105; J7120

== ENCOUNTER 2016-12-24 13:34 | Inpatient (IN) | payer MEDICAID ==
[~2016-12-24] VITALS: Ht 170.2 cm; Wt 113.5 kg
[~2016-12-24 13:34] MED LIST changes: -ASPI81CH3 CHEW; -CALC500T35 PO; +IBUP-232 PO; +SENN1TAB PO
[2016-12-24 13:38] VITALS: BP 156/96; PULSE 63; RESP 22; TEMP 98.4; O2SAT 96
[2016-12-24] MEDS ORDERED: SODIUM CHLOR 0.9% 1000 ML INJ 1,000 ML IV SCH (14:10)
[2016-12-24] MEDS ORDERED: MORPHINE SULFATE 4 MG/ML INJ IV PUSH ONE (14:15)
[2016-12-24] MEDS ORDERED: SODIUM CHLORIDE 0.9% FLUSH 10 ML FLUSH IV FLUSH PRN ×2 (14:15→17:00)
[2016-12-24] MEDS ORDERED: ONDANSETRON HCL 4 MG/2 ML VIAL IVP ONE (14:15)
--- NOTE | 2016-12-24 14:27 | PD ---
HPI Chief Complaint: GI Complaint Time Seen by Provider: 13:58 Travel History International Travel<30 days: No Contact w/Intl Traveler<30days: No Traveled to known affect area: No History of Present Illness HPI Is a 41-year-old woman, status post vaginal delivery on November 30. Doing fine until today when she had the abrupt onset of epigastric abdominal pain that radiates through to her back. She's had nausea and vomiting with it. Started last night and a little bit off and on but is been severe and persistent for several hours this morning. No history of previous similar symptoms. No diarrhea. She has a little mild constipation. No definite fevers. She has no history of abdominal surgery. She otherwise had been feeling well and healthy before the onset of these symptoms. She is not breast- feeding. History Past Medical History Narrative Medical Gestational diabetes Hypertension Social History Alcohol Use: No Tobacco Use: No Allergies-Medications (Allergen,Severity, Reaction): Coded Allergies: penicillin G (Unverified Allergy, Severe, ANAPYHLAXIS, 12/24/16) latex (Unverified Allergy, Unknown, Rash, 12/24/16) Reported Meds & Prescriptions Reported Meds & Active Scripts Active No Active Prescriptions or Reported Medications Review of Systems Except as stated in HPI: all other systems reviewed are Neg Physical Exam Narrative GENERAL: The 41-year-old woman, very uncomfortable appearing, lying on bed and writhing. Nontoxic. SKIN: Focused skin assessment warm/dry. HEAD: Atraumatic. Normocephalic. NECK: Trachea midline. No JVD. CARDIOVASCULAR: Regular rate and rhythm. No murmur appreciated. RESPIRATORY: No accessory muscle use. Clear to auscultation. Breath sounds equal bilaterally. GASTROINTESTINAL: Abdomen is obese, soft, she has significant epigastric and right upper quadrant tenderness with some voluntary guarding. No CVA tenderness to percussion. MUSCULOSKELETAL: No obvious deformities. No clubbing. No cyanosis. No edema. NEUROLOGICAL: Awake and alert. No obvious cranial nerve deficits. Motor grossly within normal limits. Normal speech. PSYCHIATRIC: Appropriate mood and affect; insight and judgment normal. Data Data Last Documented VS Vital Signs Date Time Temp Pulse Resp B/P (MAP) Pulse Ox O2 Delivery O2 Flow Rate FiO2 12/24/16 13:38 98.4 63 22 156/96 (116) 96 Orders Orders Complete Blood Count With Diff (9/3/17 14:10) Comprehensive Metabolic Panel (12/24/16 14:10) Lipase (12/24/16 14:10) Urinalysis - C+S If Indicated (12/24/16 14:10) Us Abdomen Gallbladder (12/24/16 ) Iv Access Insert/Monitor (12/24/16 14:10) Ecg Monitoring (12/24/16 14:10) Oximetry (12/24/16 14:10) Morphine Inj (Morphine Inj) (12/24/16 14:15) Ondansetron Inj (Zofran Inj) (12/24/16 14:15) Sodium Chlor 0.9% 1000 Ml Inj (Ns 1000 M (12/24/16 14:10) Sodium Chloride 0.9% Flush (Ns Flush) (12/24/16 14:15) Urine Culture (12/24/16 14:15) Hydromorphone Pf Inj (Dilaudid Pf Inj) (12/24/16 15:30) Mri Mrcp W & W/O Contrast (12/24/16 ) Consult General Surgery (12/24/16 ) Consult Gastroenterology (12/24/16 ) Admit Order (Ed Use Only) (12/24/16 ) Labs Laboratory Tests Test 12/24/16 14:15 12/24/16 14:20 Urine Color DARK-YELLOW Urine Turbidity HAZY Urine pH 5.5 Urine Specific [place] 1.029 Urine Protein 30 mg/dL Urine Glucose (UA) NEG mg/dL Urine Ketones NEG mg/dL Urine Occult Blood LARGE Urine Nitrite NEG Urine Bilirubin MOD Urine Urobilinogen 4.0 MG/DL Urine Leukocyte Esterase MOD Urine RBC /hpf Urine WBC 30 /hpf Urine Squamous Epithelial Cells 1 /hpf Urine Transitional Epithelial Cells <1 /hpf Urine Bacteria MOD /hpf Urine Hyaline Casts 1 /lpf Urine Mucus FEW /lpf Microscopic Urinalysis Comment CULTURE INDICATED White Blood Count 10.3 TH/MM3 Red Blood Count 5.60 MIL/MM3 Hemoglobin 12.8 GM/DL Hematocrit 41.5 % Mean Corpuscular Volume 74.1 FL Mean Corpuscular Hemoglobin 22.8 PG Mean Corpuscular Hemoglobin Concent 30.8 % Red Cell Distribution Width 20.0 % Platelet Count 353 TH/MM3 Mean Platelet Volume 8.6 FL Neutrophils (%) (Auto) 90.2 % Lymphocytes (%) (Auto) 7.0 % Monocytes (%) (Auto) 2.2 % Eosinophils (%) (Auto) 0.1 % Basophils (%) (Auto) 0.5 % Neutrophils # (Auto) 9.3 TH/MM3 Lymphocytes # (Auto) 0.7 TH/MM3 Monocytes # (Auto) 0.2 TH/MM3 Eosinophils # (Auto) 0.0 TH/MM3 Basophils # (Auto) 0.0 TH/MM3 CBC Comment DIFF FINAL Differential Comment Blood Urea Nitrogen 13 MG/DL Creatinine 0.97 MG/DL Random Glucose 126 MG/DL Total Protein 7.5 GM/DL Albumin 3.6 GM/DL Calcium Level 8.9 MG/DL Alkaline Phosphatase 441 U/L Aspartate Amino Transf (AST/SGOT) 538 U/L Alanine Aminotransferase (ALT/SGPT) 476 U/L Total Bilirubin 2.1 MG/DL Sodium Level 137 MEQ/L Potassium Level 5.2 MEQ/L Chloride Level 108 MEQ/L Carbon Dioxide Level 22.6 MEQ/L Anion Gap 6 MEQ/L Estimat Glomerular Filtration Rate 63 ML/MIN Lipase 23260 U/L [facility] Medical Decision Making Medical Screen Exam Complete: Yes Emergency Medical Condition: Yes Interpretation(s) CBC is remarkable for microcytic indices. CMP is remarkable for elevated total bili, AST, ALT, alkaline phosphatase. Lipase is 36,000 UA contaminated with blood Right upper quadrant ultrasound: Stone in the neck of the gallbladder with tenderness over the gallbladder. Wall thickness is normal. No pericholecystic fluid. Differential Diagnosis Gastritis, cholecystitis, choledocholithiasis, renal lithiasis, preeclampsia, other Narrative Course Medical decision making This is a 41-year-old woman who presents to the emergency department with severe abdominal pain with marked tenderness in the epigastric right upper quadrant issues back suspicious for hepatobiliary disease. Gastritis seems less likely. Renal lithiasis as possible. We'll check labs, ultrasound, reassess. FINAL: Patient with pancreatitis. Stone in the gallbladder neck with gallbladder tenderness. Suspect all but her pancreatitis. Possible cholecystitis concomitantly. We'll check MRCP. Patient will be admitted. Diagnosis Primary Impression: Acute gallstone pancreatitis Admitting Information Admitting Physician Requests: Admit Scripts No Active Prescriptions or Reported Meds Aris Carcamo MD Dec 24, 2016 14:27
[2016-12-24 14:31] LABS: AUTOMATED NEUTROPHIL # 9.3 TH/MM3 (1.8-7.7); BASOPHIL % 0.5 % (0.0-2.0); EOSINOPHIL % 0.1 % (0.0-4.0); HEMATOCRIT 41.5 % (35.0-46.0); HEMO FLAGS DIFF FINAL; LYMPHOCYTE # 0.7 TH/MM3 (1.0-4.8); MEAN CELL VOLUME 74.1 FL (80.0-100.0); MEAN CORPUSCULAR HEMOGLOBIN 22.8 PG (27.0-34.0); MEAN CORPUSCULAR HGB CONC 30.8 % (32.0-36.0); MONO % 2.2 % (0.0-8.0); NEUT % 90.2 % (16.0-70.0); PLATELET COUNT 353 TH/MM3 (150-450); WHITE BLOOD COUNT 10.3 TH/MM3 (4.0-11.0)
[2016-12-24 14:46] LABS: BACTERIA, URINE MOD /hpf; BLOOD, URINE LARGE (NEG); COMMENT (UR) CULTURE INDICATED; CULTURE IF INDICATED CULTURE INDICATED; GLUCOSE,URINE NEG (NEG); HYALINE CAST, URINE 1 /lpf (RARE); KETONE, URINE NEG (NEG); MUCUS URINE FEW /lpf (OCC); NITRITE,URINE NEG (NEG); PH, URINE 5.5 (5.0-8.5); SQUAMOUS EPITHELIAL CELL URINE 1 /hpf (0-5); TRANSITIONAL EPI CELLS, URINE <1 /hpf; URINE COLOR DARK-YELLOW (YELLW/STRAW)
[2016-12-24 14:47] LABS: ALT (GPT) 476 U/L (10-53)
[2016-12-24 14:49] LABS: ALKALINE PHOSPHATASE 441 U/L (45-117); TOTAL BILIRUBIN ADULT 2.1 MG/DL (0.2-1.0)
--- NOTE | 2016-12-24 15:09 | RADRPT ---
EXAM DATE/TIME: 12/24/2016 14:21 [facility] COMPARISON: No previous studies available for comparison. INDICATIONS : Right upper quadrant pain. MEDICAL HISTORY : SURGICAL HISTORY : Tonsillectomy. Foot surgery. ENCOUNTER: Initial ACUITY: 1 day PAIN SCORE: 2/10 LOCATION: Right upper quadrant MEASUREMENTS: LIVER: 17.8 cm length COMMON DUCT: 5 mm RIGHT KIDNEY: 10.6 x 3.9 x 4.8 cm FINDINGS: LIVER: Normal echotexture without focal lesion or ductal dilatation. COMMON DUCT: No intraluminal mass or stone visualized. GALLBLADDER: Small stone in the neck of the gallbladder. Patient is tender over the gallbladder. PANCREAS: Poorly visualized. RIGHT KIDNEY: No evidence of hydronephrosis, stone, or mass. CONCLUSION: Stone in the neck of the gallbladder with tenderness over the gallbladder. Wall thickness is normal. There is no fluid around the gallbladder. Gordon Vo MD FACR on December 24, 2016 at 15:07 Board Certified Radiologist. This report was verified electronically.
[2016-12-24 15:23] LABS: ANION GAP 6 MEQ/L (5-15); AST (GOT) 538 U/L (15-37); BICARBONATE 22.6 MEQ/L (21.0-32.0); BLOOD UREA NITROGEN 13 MG/DL (7-18); CHLORIDE 108 MEQ/L (98-107); GLOMERULAR FILTRATION RATE 63 ML/MIN (>89); POTASSIUM 5.2 MEQ/L (3.5-5.1); SODIUM (NA) 137 MEQ/L (136-145)
[2016-12-24] MEDS ORDERED: HYDROmorphone HCL PF 1 MG/ML VIAL IVS ONE (15:30)
[2016-12-24 16:02] VITALS: BP 149/82; PULSE 62; RESP 18; O2SAT 95
--- NOTE | 2016-12-24 16:37 | HHI.HP ---
[facility] Service Family Medicine Primary Care Physician No Primary Care Physician Admission Diagnosis gallstone pancreatitis Diagnoses: International Travel<30 Days: No Contact w/Intl Traveler<30days: No Known Affected Area: No History of Present Illness Patient is a 41 year old female, vaginal delivery on who was in her usual state of health until Sunday12/22/16 when she suddenly developed excruciating 15/10 stabbing pain in her epigastric to lower chest region that radiated to her back. Patient states that she was shopping at [employer] with her baby when this pain began. The pain subsided and she was able to carry on with her normal activities and eat dinner until last night around 11 PM when it returned in full force. Today she's had four bouts of vomiting sour white to yellow bilious material. She did not take any pain medications at home and did not measure her temperature. Patient's care was managed by Dr. Matt Leo, PGY 3 at the [facility]. She is within 6 weeks . Review of Systems Constitutional: COMPLAINS OF: Chills, DENIES: Fever Eyes: DENIES: Blurred vision, Vision loss Ears, nose, mouth, throat: DENIES: Nasal discharge, Running Nose Respiratory: DENIES: Cough, Shortness of breath Cardiovascular: COMPLAINS OF: Chest pain Gastrointestinal: COMPLAINS OF: Abdominal pain, Nausea, Vomiting, DENIES: Bloody stools Genitourinary: DENIES: Urinary frequency, Dysuria Musculoskeletal: DENIES: Joint pain, Muscle aches Integumentary: DENIES: Rash Neurologic: DENIES: Headache Psychiatric: DENIES: Anxiety, Depression Past Family Social History Past Medical History -Denies significant past medical history -History of gestational diabetes with last Past Surgical History -Left foot surgery -Tonsillectomy and adenoidectomy as a child Reported Medications Reported Meds & Active Scripts Active No Active Prescriptions or Reported Medications Allergies: Coded Allergies: penicillin G (Unverified Allergy, Severe, ANAPYHLAXIS, 12/24/16) latex (Unverified Allergy, Unknown, Rash, 12/24/16) Family History -Paternal grandfather has diabetes -Mom has hypoglycemia Social History -Denies smoking, alcohol use, or drug use -Lives in [place] with her and 5 children -Has had 6 pregnancies and 5 full-term deliveries Physical Exam Vital Signs Vital Signs Date Time Temp Pulse Resp B/P (MAP) Pulse Ox O2 Delivery O2 Flow Rate FiO2 12/24/16 16:02 62 18 149/82 (104) 95 Room Air 12/24/16 13:38 98.4 63 22 156/96 (116) 96 Physical Exam GENERAL: This is a well-nourished, well-developed patient, in no apparent distress. SKIN: No rashes, ecchymoses or lesions. Cool and dry. HEAD: Atraumatic. Normocephalic. No temporal or scalp tenderness. EYES: Pupils equal round and reactive. Extraocular motions intact. No scleral icterus. No injection or drainage. ENT: Nose without bleeding, purulent drainage or septal hematoma. Throat without erythema, tonsillar hypertrophy or exudate. Uvula midline. Airway patent. NECK: Trachea midline. No JVD or lymphadenopathy. Supple, nontender, no meningeal signs. CARDIOVASCULAR: Regular rate and rhythm without murmurs, gallops, or rubs. RESPIRATORY: Clear to auscultation. Breath sounds equal bilaterally. No wheezes , rales, or rhonchi. GASTROINTESTINAL: Abdomen soft, nondistended, tender to mild palpation mostly in the epigastric and left upper quadrant region. Normal bowel sounds MUSCULOSKELETAL: Extremities without clubbing, cyanosis, or edema. No joint tenderness, effusion, or edema noted. No calf tenderness. NEUROLOGICAL: Awake and alert. Cranial nerves II through XII intact. Motor and sensory grossly within normal limits. Five out of 5 muscle strength in all muscle groups. Normal speech. Laboratory Laboratory Tests Test 12/24/16 14:15 12/24/16 14:20 Urine Color DARK-YELLOW Urine Turbidity HAZY Urine pH 5.5 Urine Specific [place] 1.029 Urine Protein 30 Urine Glucose (UA) NEG Urine Ketones NEG Urine Occult Blood LARGE Urine Nitrite NEG Urine Bilirubin MOD Urine Urobilinogen 4.0 Urine Leukocyte Esterase MOD Urine RBC Urine WBC 30 Urine Squamous Epithelial Cells 1 Urine Transitional Epithelial Cells <1 Urine Bacteria MOD Urine Hyaline Casts 1 Urine Mucus FEW Microscopic Urinalysis Comment CULTURE INDICATED White Blood Count 10.3 Red Blood Count 5.60 Hemoglobin 12.8 Hematocrit 41.5 Mean Corpuscular Volume 74.1 Mean Corpuscular Hemoglobin 22.8 Mean Corpuscular Hemoglobin Concent 30.8 Red Cell Distribution Width 20.0 Platelet Count 353 Mean Platelet Volume 8.6 Neutrophils (%) (Auto) 90.2 Lymphocytes (%) (Auto) 7.0 Monocytes (%) (Auto) 2.2 Eosinophils (%) (Auto) 0.1 Basophils (%) (Auto) 0.5 Neutrophils # (Auto) 9.3 Lymphocytes # (Auto) 0.7 Monocytes # (Auto) 0.2 Eosinophils # (Auto) 0.0 Basophils # (Auto) 0.0 CBC Comment DIFF FINAL Differential Comment Blood Urea Nitrogen 13 Creatinine 0.97 Random Glucose 126 Total Protein 7.5 Albumin 3.6 Calcium Level 8.9 Alkaline Phosphatase 441 Aspartate Amino Transf (AST/SGOT) 538 Alanine Aminotransferase (ALT/SGPT) 476 Total Bilirubin 2.1 Sodium Level 137 Potassium Level 5.2 Chloride Level 108 Carbon Dioxide Level 22.6 Anion Gap 6 Estimat Glomerular Filtration Rate 63 Lipase 67329 Date/Time Source Procedure Growth Status 12/24/16 14:15 Urine Random Urine Urine Culture Pending Received Result Diagram: 12/24/16 1420 12/24/16 1420 Imaging Last Impressions Gall Bladder Ultrasound 12/24/16 0000 Signed Impressions: Service Date/Time: Saturday, December 24, 2016 14:21 - CONCLUSION: Stone in the neck of the gallbladder with tenderness over the gallbladder. Wall thickness is normal. There is no fluid around the gallbladder. Gordon Vo MD FACR Cholangiopancreatography MRI 12/24/16 0000 Signed Impressions: Service Date/Time: Saturday, December 24, 2016 17:16 - CONCLUSION: Multiple small gallstones and distal common duct stone associated with pancreatitis. Mild gallbladder wall thickening is evident. Gordon Vo MD FACR Course In the ED, patient received 1 normal saline bolus, ultrasound abdomen was ordered Caprini VTE Risk Assessment Caprini VTE Risk Assessment: Mod/High Risk (score >= 2) Caprini Risk Assessment Model Point Value = 1 Point Value = 2 Point Value = 3 Point Value = 5 Age 41-60 Minor surgery BMI > 25 kg/m2 Swollen legs Varicose veins or History of unexplained or recurrent spontaneous Oral contraceptives or hormone replacement Sepsis (< 1 month) Serious lung disease, including pneumonia (< 1 month) Abnormal pulmonary function Acute myocardial infarction Congestive heart failure (< 1 month) History of inflammatory bowel disease Medical patient at bed rest Age 61-74 Arthroscopic surgery Major open surgery (> 45 min) Laparoscopic surgery (> 45 min) Malignancy Confined to bed (> 72 hours) Immobilizing plaster cast Central venous access Age >= 75 History of VTE Family history of VTE Factor V Leiden Prothrombin [id number] Lupus anticoagulant Anticardiolipin antibodies Elevated serum homocysteine Heparin-induced thrombocytopenia Other congenital or acquired thrombophilia Stroke (< 1 month) Elective arthroplasty Hip, pelvis, or leg fracture Acute spinal cord injury (< 1 month) Prophylaxis Regimen Total Risk Factor Score Risk Level Prophylaxis Regimen 0-1 Low Early ambulation 2 Moderate Order ONE of the following: *Sequential Compression Device (SCD) *Heparin 5000 units SQ BID 3-4 Higher Order ONE of the following medications: *Heparin 5000 units SQ TID *Enoxaparin/Lovenox 40 mg SQ daily (WT < 150 kg, CrCl > 30 mL/min) *Enoxaparin/Lovenox 30 mg SQ daily (WT < 150 kg, CrCl > 10-29 mL/min) *Enoxaparin/Lovenox 30 mg SQ BID (WT < 150 kg, CrCl > 30 mL/min) AND/OR *Sequential Compression Device (SCD) 5 or more Highest Order ONE of the following medications: *Heparin 5000 units SQ TID (Preferred with Epidurals) *Enoxaparin/Lovenox 40 mg SQ daily (WT < 150 kg, CrCl > 30 mL/min) *Enoxaparin/Lovenox 30 mg SQ daily (WT < 150 kg, CrCl > 10-29 mL/min) *Enoxaparin/Lovenox 30 mg SQ BID (WT < 150 kg, CrCl > 30 mL/min) AND *Sequential Compression Device (SCD) Assessment and Plan Assessment and Plan 41-year-old female presents with acute epigastric pain that is concerning for acute cholecystitis in the setting of acute pancreatitis. Right upper quadrant ultrasound performed in the ED shows a stone in the [place] [address]. AST and ALT elevated indicating acute hepatitis. Patient will be admitted for management with IV opiates and fluids. She will also be treated for a urinary tract infection observed on UA. Code Status Full code Discussed Condition With Seen and examined with Dr. Friedman, PGY 1 Problem List: (1) Acute gallstone pancreatitis ICD Codes: K85.10 - Biliary acute pancreatitis without necrosis or infection Status: Acute Plan: -Gallbladder ultrasound suspicious for gallstone pancreatitis, no overt signs of acute cholecystitis -Lipase greater than 36,000 -AST/ALT 538/476, alkaline phosphatase 441 -MRCP ordered in the ED -GI consulted -Gen. surgery consulted -Repeat lipase in the a.m. Plan -Normal saline at 150 mL's per hour -Toradol 30 mg by mouth every 6 hours -Dilaudid 1 mg IV every 3 hours when necessary breakthrough pain (2) UTI (urinary tract infection) ICD Codes: N39.0 - Urinary tract infection, site not specified Status: Acute Plan: -UA significant for large occult blood, moderate leukocyte esterase, 30 white blood cells, and moderate bacteria -Urine culture pending -Patient reports history of 2 UTIs during -Due to lactic penicillin allergy, will treat with aztreonam 1 g IV every 12 and gentamicin 400 mg IV every 24 hours -Pyridium when necessary for dysuria (3) FEN/DVT PPX/GI PPX/Nursing Orders Plan: Fluids: NS @150 mls/hr IV Electrolytes: Will monitor and replace as needed Nutrition: NPO DVT Prophylaxis: Heparin subcutaneous Q8h and bilateral SCDs GI Prophylaxis: None required Constipation prophylaxis: None currently due to nothing by mouth PRN Medications Zofran 4 mg IV push every 6 hours when necessary nausea vomiting -Vitals Q4h -Monitor I's and O's -Activity bed rest Disposition: Pending clinical improvement in pain and able to tolerate by mouth intake Physician Certification 2 Midnight Certification Type: Admission for Inpatient Services Order for Inpatient Services The services are ordered in accordance with Medicare regulations or non- Medicare payer requirements, as applicable. In the case of services not specified as inpatient-only, they are appropriately provided as inpatient services in accordance with the 2-midnight benchmark. Estimated LOS (days): 3 days is the estimated time the patient will need to remain in the hospital, assuming treatment plan goals are met and no additional complications. Post-Hospital Plan: Home Problem Qualifiers (1) UTI (urinary tract infection): Qualified Codes: N30.01 - Acute cystitis with hematuria Hien Reddy MD R2 Dec 24, 2016 16:36
[2016-12-24] MEDS: SODIUM CHLOR 0.9% 1000 ML INJ 1,000 ML IV SCH ×2 (17:42→20:32)
[2016-12-24] MEDS ORDERED: PHENAZOPYRIDINE HCL 200 MG TAB PO PRN (17:45)
[2016-12-24] MEDS ORDERED: Gentamicin Consult Pharmacy 1 EA XX SCH (17:45)
[2016-12-24] MEDS ORDERED: KETOROLAC TROMETHAMINE 30 MG/ML (IVP) VIAL IVP PRN (17:45)
--- NOTE | 2016-12-24 18:30 | RADRPT ---
EXAM DATE/TIME: 12/24/2016 17:16 [facility] COMPARISON: No previous studies available for comparison. INDICATIONS : Cholelithiasis. MEDICAL HISTORY : None. SURGICAL HISTORY : Tonsillectomy. Adenoids, Foot surgery ENCOUNTER: Initial ACUITY: 1 day PAIN SCORE: 7/10 LOCATION: Abdomen TECHNIQUE: Multiplanar, multisequence magnetic resonance imaging of the abdomen was performed. High-resolution 3D dataset was utilized to reconstruct maximum-intensity projection (MIP) images. FINDINGS: INTRAHEPATIC BILE DUCTS: Within normal limits. No significant anatomical variant is present. EXTRAHEPATIC BILE DUCTS: Common duct is normal in size with a small stone in the distal common duct, the same size as the sma ll gallstones. GALLBLADDER: Multiple small stones with gallbladder wall thickening. LIVER: Normal size and signal intensity. No concerning liver lesion is identified on this non-contrast exam. PANCREAS: There is mild pancreatitis evident. OTHER: The remaining visualized structures demonstrate no acute abnormality on this non-contrast exam. CONCLUSION: Multiple small gallstones and distal common duct stone associated with pancreatitis. Mild gallbladd er wall thickening is evident. Gordon Vo MD FACR on December 24, 2016 at 18:21 Board Certified Radiologist. This report was verified electronically.
--- NOTE | 2016-12-24 19:22 | PD.CONS ---
HPI History of Present Illness This is a 41 year old female patient with two day history of sudden onset of epigastric pain and chest pain, associated with vomiting. She was passing a few stools as well. Dark. The pain is severe. She has 5 children, the youngest is 3 weeks old. She denies fever, chills. Pain is improved on pain meds. She came to ED today and was admitted. US shows gallstones in neck of GB. MRCP shows mild pancreatitis with distal stone and mildly dilated CBD. Lipase is 35,000. bilirubin is mildly elevated. LFTs are elevated at 400. She denies other medical problems. ROS: No shortness of breath, no rash, no diarrhea. No lower abdominal cramps, no hematemesis. Otherwise complete ros is negative. PFSH Past Medical History Healthy Takes no medications Past Surgical History T and A as child 5 children. Coded Allergies: penicillin G (Unverified Allergy, Severe, ANAPYHLAXIS, 12/24/16) latex (Unverified Allergy, Unknown, Rash, 12/24/16) Medications Current Medications Medications (Trade) Dose Ordered Sig/Jesus Route Start Time Stop Time Status Last Admin Sodium Chloride 1,000 ml @ 150 mls/hr Q6H40M IV 12/24/16 16:55 12/24/16 17:42 (NS Flush) 2 ml UNSCH PRN IV FLUSH 12/24/16 17:00 (NS Flush) 2 ml BID IV FLUSH 12/24/16 21:00 (Toradol Inj) 30 mg Q6H PRN IVP 12/24/16 17:45 UNV (Dilaudid Pf Inj) 1 mg Q3H PRN IV 12/24/16 17:45 UNV (Zofran Inj) 4 mg Q6H PRN IV 12/24/16 17:45 UNV (Heparin Inj) 5,000 units Q8H SQ 12/24/16 17:45 UNV (Pyridium) 200 mg TID PRN PO 12/24/16 17:45 12/26/16 17:44 UNV Aztreonam 1000 mg/ Sodium Chloride 100 ml @ 200 mls/hr Q12H IV 12/24/16 18:45 UNV Gentamicin Sulfate 330 mg/ Sodium Chloride 108.25 ml @ 100 mls/ hr Q24H IV 12/24/16 19:45 UNV Pharmacy Profile Note 0 ml @ 0 mls/hr UNSCH XX 12/24/16 17:45 UNV Family History Negative for gastric of colon cancer, gallstones, pancreatitis. Social History No illicit drug use. Spouse accompanies. GI Exam Vitals I&O Vital Signs Date Time Temp Pulse Resp B/P (MAP) Pulse Ox O2 Delivery O2 Flow Rate FiO2 12/24/16 16:02 62 18 149/82 (104) 95 Room Air 12/24/16 13:38 98.4 63 22 156/96 (116) 96 I/O 12/23/16 12/23/16 12/23/16 12/24/16 12/24/16 12/24/16 07:00 15:00 23:00 07:00 15:00 23:00 Intake Total 1000 ml Balance 1000 ml Intake IV Total 1000 ml Laboratory Test 12/24/16 14:15 12/24/16 14:20 Urine Color DARK-YELLOW Urine Turbidity HAZY Urine pH 5.5 Urine Specific [place] 1.029 Urine Protein 30 mg/dL Urine Glucose (UA) NEG mg/dL Urine Ketones NEG mg/dL Urine Occult Blood LARGE Urine Nitrite NEG Urine Bilirubin MOD Urine Urobilinogen 4.0 MG/DL Urine Leukocyte Esterase MOD Urine RBC /hpf Urine WBC 30 /hpf Urine Squamous Epithelial Cells 1 /hpf Urine Transitional Epithelial Cells <1 /hpf Urine Bacteria MOD /hpf Urine Hyaline Casts 1 /lpf Urine Mucus FEW /lpf Microscopic Urinalysis Comment CULTURE INDICATED White Blood Count 10.3 TH/MM3 Red Blood Count 5.60 MIL/MM3 Hemoglobin 12.8 GM/DL Hematocrit 41.5 % Mean Corpuscular Volume 74.1 FL Mean Corpuscular Hemoglobin 22.8 PG Mean Corpuscular Hemoglobin Concent 30.8 % Red Cell Distribution Width 20.0 % Platelet Count 353 TH/MM3 Mean Platelet Volume 8.6 FL Neutrophils (%) (Auto) 90.2 % Lymphocytes (%) (Auto) 7.0 % Monocytes (%) (Auto) 2.2 % Eosinophils (%) (Auto) 0.1 % Basophils (%) (Auto) 0.5 % Neutrophils # (Auto) 9.3 TH/MM3 Lymphocytes # (Auto) 0.7 TH/MM3 Monocytes # (Auto) 0.2 TH/MM3 Eosinophils # (Auto) 0.0 TH/MM3 Basophils # (Auto) 0.0 TH/MM3 CBC Comment DIFF FINAL Differential Comment Blood Urea Nitrogen 13 MG/DL Creatinine 0.97 MG/DL Random Glucose 126 MG/DL Total Protein 7.5 GM/DL Albumin 3.6 GM/DL Calcium Level 8.9 MG/DL Alkaline Phosphatase 441 U/L Aspartate Amino Transf (AST/SGOT) 538 U/L Alanine Aminotransferase (ALT/SGPT) 476 U/L Total Bilirubin 2.1 MG/DL Sodium Level 137 MEQ/L Potassium Level 5.2 MEQ/L Chloride Level 108 MEQ/L Carbon Dioxide Level 22.6 MEQ/L Anion Gap 6 MEQ/L Estimat Glomerular Filtration Rate 63 ML/MIN Lipase 06272 U/L Date/Time Source Procedure Growth Status 12/24/16 14:15 Urine Random Urine Urine Culture Pending Received Physical Examination HEENT: Pupils round and reactive to light; normocephalic; atraumatic; mild jaundice Throat is clear. NECK: Neck is supple, no JVD, no lymphadenopathy. CHEST: Chest is clear to auscultation and percussion. CARDIAC: Regular rate and rhythm with no murmur gallop or rubs. ABDOMEN: Soft, nondistended, moderately tender; no hepatosplenomegaly; bowel sounds are present in all four quadrants. EXTREMITIES: No clubbing, cyanosis, or edema. SKIN: Normal; no rash. ENGINEERING LECTURER: No focal deficits; alert and oriented times three. Assessment and Plan Plan Impression: - Gallstone pancreatitis - Jaundice with CBD stone and elevated transaminases - Gallstones in gallbladder. Plan: - Will need ERCP most likely. Probably tomorrow. - Follow Lipase, LFTs tonight and tomorrow - NPO - IVFluids - Monitor BUN Marcos Ho MD Dec 24, 2016 19:22
[2016-12-24 20:14] VITALS: BP 145/88; PULSE 60; RESP 17; TEMP 97.9; O2SAT 100
[2016-12-24] MEDS: AZTREONAM INJ 1,000 MG in SODIUM CHLORIDE 0.9% INJ 100 ML IV SCH (20:30)
[2016-12-24] MEDS: HEPARIN SODIUM - SQ 10,000 UNITS/ML VIAL SQ SCH ×2 (20:31→21:58)
[2016-12-24] MEDS: ONDANSETRON HCL 4 MG/2 ML VIAL IV PRN (20:31)
[2016-12-24] MEDS: SODIUM CHLORIDE 0.9% FLUSH 10 ML FLUSH IV FLUSH SCH (20:32)
[2016-12-24] MEDS: HYDROmorphone HCL PF 1 MG/ML VIAL IV PRN (20:32)
[2016-12-24] MEDS ORDERED: GENTAMICIN IV SCH (21:00)
[2016-12-24] MEDS ORDERED: SODIUM CHLORIDE 0.9% IV SCH (21:00)
[2016-12-24] MEDS ORDERED: GENTAMICIN INJ 400 MG in SODIUM CHLORIDE 0.9% INJ 100 ML IV SCH (21:00)
[2016-12-24 23:47] VITALS: BP 124/73; PULSE 64; RESP 18; TEMP 96.8; O2SAT 98
[2016-12-25] MEDS: HYDROmorphone HCL PF 1 MG/ML VIAL IV PRN ×5 (02:21→22:53)
[2016-12-25] MEDS: ONDANSETRON HCL 4 MG/2 ML VIAL IV PRN ×3 (02:21→19:10)
[2016-12-25] MEDS: KETOROLAC TROMETHAMINE 30 MG/ML (IVP) VIAL IVP SCH ×4 (02:22→20:06)
[2016-12-25] MEDS: SODIUM CHLOR 0.9% 1000 ML INJ 1,000 ML IV SCH ×3 (02:26→19:35)
[2016-12-25] MEDS ORDERED: SODIUM CHLORID 0.9% 500 ML IV PRN (03:15)
[2016-12-25] MEDS ORDERED: LACTATED RINGER'S 1000 ML IV PRN (03:15)
[2016-12-25 04:15] VITALS: BP 116/69; PULSE 71; RESP 18; TEMP 97.7; O2SAT 99
--- NOTE | 2016-12-25 05:59 | MB ---
cc: KAILASH JOHNS MD DATE OF CONSULTATION 12/24/2016 REASON FOR CONSULTATION Gallstone pancreatitis. HISTORY OF PRESENT ILLNESS The patient is a 41-year-old female who presented status post vaginal delivery on November 30. She presents with acute onset of epigastric pain. She states the pain started Sunday and continued to progressively and get worse. She states the pain was initially 10/10 but has improved with morphine. She never had pain quite like this severe in her life and states there is some radiation to the right upper quadrant. She has had decreased p.o. intake. She has had some nausea, no vomiting. She denies any fevers or chills. She had further workup including right upper quadrant ultrasound showing gallstones. She had further laboratory workup showing a total bilirubin of 2.1 and a lipase of 36,000. Surgery was consulted for further evaluation. PAST MEDICAL HISTORY 1. Gestational diabetes. 2. Hypertension. 3. Murmur. PAST SURGICAL HISTORY No surgical history. SOCIAL HISTORY Denies smoking, EtOH or IVDA. ALLERGIES PENICILLIN. LATEX. MEDICATIONS See EMR. FAMILY HISTORY Denies hypertension or diabetes. REVIEW OF SYSTEMS. GENERAL: Denies fevers or chills. HEENT: Denies eye pain, ear pain and scleral icterus. NECK: Denies swelling or pain. CARDIOVASCULAR: Denies chest pain, palpitation. RESPIRATORY: Denies cough or wheeze. ABDOMEN: Complains of nausea. Denies vomiting. Complained of abdominal pain. : Denies dysuria or hematuria. ENDOCRINE: Denies polyuria, polydipsia. NEUROLOGIC: Denies numbness and tingling. PSYCH: Denies change in mood or affect. PHYSICAL EXAMINATION VITAL SIGNS: Temperature 98.4, pulse 63, respiration 22, blood pressure 156/96, saturation 96% on room air. HEENT: PERRLA. Pupils equal, round and reactive. Normocephalic, atraumatic. NECK: Supple. Trachea midline. No JVD. CARDIOVASCULAR: Regular rate, irregular. Positive murmur. RESPIRATORY: Clear to auscultation, bilateral breath sounds. ABDOMEN: Soft, positives palpation in the epigastric area. No rebound, no guarding. MUSCULOSKELETAL: Warm, well-perfused. No edema. NEUROLOGIC: GCS of 15, 5/5 motor in all extremities. PSYCH: Good mood and affect. LABORATORY AND DIAGNOSTIC DATA WBC 10.3, hemoglobin 12.8, hematocrit 41.5, platelets 353. Sodium 137, potassium 5.2, chloride 108, BUN 13, creatinine 0.97, calcium 8.9. T-bili 2.1, AST 538, ALT 476, alk phos 441, lipase 36,423. Gallbladder ulcer reviewed by myself showing stones at the gallbladder neck. Castillo's sign. No wall thickening. No evidence of common duct stone. ASSESSMENT The patient is a 41-year-old female who presents with concern for gallstone pancreatitis. PLAN After a full clinical workup, the patient with the above-named issues including pancreatitis likely from gallstones. At this point we will obtain MRCP, likely with consultation to Gastroenterology for further evaluation. The patient will likely be possible ERCP pending results of MRCP. Currently the patient is n.p.o., IV fluids, pain control, recheck labs in the morning and follow closely with abdominal exams. Discussed with the patient that she will need laparoscopic cholecystectomy once pancreatic enzymes have improved and any common bile duct stones removed if present. MD RICO Solorzano/IAN /9:05 PM /5:45 AM
[2016-12-25 06:25] LABS: AUTOMATED NEUTROPHIL # 8.4 TH/MM3 (1.8-7.7); BASOPHIL % 0.1 % (0.0-2.0); HEMATOCRIT 37.2 % (35.0-46.0); HEMO FLAGS DIFF FINAL; LYMPH % 11.1 % (9.0-44.0); LYMPHOCYTE # 1.1 TH/MM3 (1.0-4.8); MEAN CELL VOLUME 74.1 FL (80.0-100.0); MEAN CORPUSCULAR HEMOGLOBIN 23.2 PG (27.0-34.0); MEAN CORPUSCULAR HGB CONC 31.2 % (32.0-36.0); MONO % 3.8 % (0.0-8.0); PLATELET COUNT 289 TH/MM3 (150-450); RED BLOOD COUNT 5.02 MIL/MM3 (4.00-5.30); RED CELL DISTRIBUTION WIDTH 20.6 % (11.6-17.2); WHITE BLOOD COUNT 9.8 TH/MM3 (4.0-11.0)
[2016-12-25 07:03] LABS: APTT (PATIENT) 26.6 SEC (24.3-30.1); PROTHROMBIN TIME - PATIENT 10.7 SEC (9.8-11.6)
[2016-12-25 07:16] LABS: ALKALINE PHOSPHATASE 407 U/L (45-117); ALT (GPT) 428 U/L (10-53); ANION GAP 7 MEQ/L (5-15); AST (GOT) 365 U/L (15-37); BICARBONATE 23.3 MEQ/L (21.0-32.0); BLOOD UREA NITROGEN 9 MG/DL (7-18); CHLORIDE 111 MEQ/L (98-107); GLOMERULAR FILTRATION RATE 84 ML/MIN (>89); POTASSIUM 4.2 MEQ/L (3.5-5.1); SODIUM (NA) 141 MEQ/L (136-145); TOTAL BILIRUBIN ADULT 2.2 MG/DL (0.2-1.0)
[2016-12-25 08:00] VITALS: BP 127/80; PULSE 77; RESP 17; TEMP 98.2; O2SAT 99
[2016-12-25] MEDS: AZTREONAM INJ 1,000 MG in SODIUM CHLORIDE 0.9% INJ 100 ML IV SCH (08:02)
[2016-12-25] MEDS: SODIUM CHLORIDE 0.9% FLUSH 10 ML FLUSH IV FLUSH SCH ×2 (08:16→20:06)
--- NOTE | 2016-12-25 08:55 | HHI.GIFU ---
Subjective Remarks Pt smiling today. Feeling better, urinating well. Pain is controlled. No fever, no flatus. VS are normal. LFTs are about the same. BUN is improved at 9. Objective Vitals I&O Vital Signs Date Time Temp Pulse Resp B/P (MAP) Pulse Ox O2 Delivery O2 Flow Rate FiO2 12/25/16 04:15 97.7 71 18 116/69 (85) 99 12/24/16 23:47 96.8 64 18 124/73 (90) 98 12/24/16 20:14 97.9 60 17 145/88 (107) 100 12/24/16 18:45 12/24/16 16:02 62 18 149/82 (104) 95 Room Air 12/24/16 13:38 98.4 63 22 156/96 (116) 96 I/O 12/24/16 12/24/16 12/24/16 12/25/16 12/25/16 12/25/16 07:00 15:00 23:00 07:00 15:00 23:00 Intake Total 1210 ml 1550 ml Balance 1210 ml 1550 ml Intake Oral 0 ml 0 ml IV Total 1210 ml 1550 ml # Voids 1 2 # Bowel Movements 0 0 Laboratory Laboratory Tests Test 12/24/16 14:15 12/24/16 14:20 12/25/16 06:04 Urine Color DARK-YELLOW Urine Turbidity HAZY Urine pH 5.5 Urine Specific [place] 1.029 Urine Protein 30 Urine Glucose (UA) NEG Urine Ketones NEG Urine Occult Blood LARGE Urine Nitrite NEG Urine Bilirubin MOD Urine Urobilinogen 4.0 Urine Leukocyte Esterase MOD Urine RBC Urine WBC 30 Urine Squamous Epithelial Cells 1 Urine Transitional Epithelial Cells <1 Urine Bacteria MOD Urine Hyaline Casts 1 Urine Mucus FEW Microscopic Urinalysis Comment CULTURE INDICATED White Blood Count 10.3 9.8 Red Blood Count 5.60 5.02 Hemoglobin 12.8 11.6 Hematocrit 41.5 37.2 Mean Corpuscular Volume 74.1 74.1 Mean Corpuscular Hemoglobin 22.8 23.2 Mean Corpuscular Hemoglobin Concent 30.8 31.2 Red Cell Distribution Width 20.0 20.6 Platelet Count 353 289 Mean Platelet Volume 8.6 8.4 Neutrophils (%) (Auto) 90.2 85.0 Lymphocytes (%) (Auto) 7.0 11.1 Monocytes (%) (Auto) 2.2 3.8 Eosinophils (%) (Auto) 0.1 0.0 Basophils (%) (Auto) 0.5 0.1 Neutrophils # (Auto) 9.3 8.4 Lymphocytes # (Auto) 0.7 1.1 Monocytes # (Auto) 0.2 0.4 Eosinophils # (Auto) 0.0 0.0 Basophils # (Auto) 0.0 0.0 CBC Comment DIFF FINAL DIFF FINAL Differential Comment Blood Urea Nitrogen 13 9 Creatinine 0.97 0.76 Random Glucose 126 86 Total Protein 7.5 6.4 Albumin 3.6 3.1 Calcium Level 8.9 8.4 Alkaline Phosphatase 441 407 Aspartate Amino Transf (AST/SGOT) 538 365 Alanine Aminotransferase (ALT/SGPT) 476 428 Total Bilirubin 2.1 2.2 Sodium Level 137 141 Potassium Level 5.2 4.2 Chloride Level 108 111 Carbon Dioxide Level 22.6 23.3 Anion Gap 6 7 Estimat Glomerular Filtration Rate 63 84 Lipase 01639 55079 Prothrombin Time 10.7 Prothromb Time International Ratio 1.0 Activated Partial Thromboplast Time 26.6 Date/Time Source Procedure Growth Status 12/24/16 14:15 Urine Random Urine Urine Culture Pending Received Physical Exam HEENT: Pupils round and reactive to light; normocephalic; atraumatic; no jaundice. Throat is clear. NECK: Neck is supple, no JVD, no lymphadenopathy. CHEST: Chest is clear to auscultation and percussion. CARDIAC: Regular rate and rhythm with no murmur gallop or rubs. ABDOMEN: Soft, nondistended, nontender; no hepatosplenomegaly; bowel sounds are quiet. EXTREMITIES: No clubbing, cyanosis, or edema. SKIN: Normal; no rash; no jaundice. 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 Assessment and Plan Plan Impression: - Gallstone pancreatitis - Jaundice with CBD stone and elevated transaminases - Gallstones in gallbladder. - Stable for ERCP today at 10:00 Plan: - Will need ERCP today - Follow Lipase, LFTs tonight and tomorrow - NPO - IVFluids - Monitor BUN Marcos Ho MD Dec 25, 2016 08:55
--- NOTE | 2016-12-25 10:27 | HHI.PR ---
Subjective Subjective Notes Resting in bed Reports pain was worse than childbirth Objective Vitals/I&O Vital Signs Date Time Temp Pulse Resp B/P (MAP) Pulse Ox O2 Delivery O2 Flow Rate FiO2 12/25/16 08:00 98.2 77 17 127/80 (96) 99 12/24/16 16:02 Room Air Labs Laboratory Tests Test 12/24/16 14:15 12/24/16 14:20 12/25/16 06:04 Urine Color DARK-YELLOW Urine Turbidity HAZY Urine pH 5.5 Urine Specific [place] 1.029 Urine Protein 30 Urine Glucose (UA) NEG Urine Ketones NEG Urine Occult Blood LARGE Urine Nitrite NEG Urine Bilirubin MOD Urine Urobilinogen 4.0 Urine Leukocyte Esterase MOD Urine RBC Urine WBC 30 Urine Squamous Epithelial Cells 1 Urine Transitional Epithelial Cells <1 Urine Bacteria MOD Urine Hyaline Casts 1 Urine Mucus FEW Microscopic Urinalysis Comment CULTURE INDICATED White Blood Count 10.3 9.8 Red Blood Count 5.60 5.02 Hemoglobin 12.8 11.6 Hematocrit 41.5 37.2 Mean Corpuscular Volume 74.1 74.1 Mean Corpuscular Hemoglobin 22.8 23.2 Mean Corpuscular Hemoglobin Concent 30.8 31.2 Red Cell Distribution Width 20.0 20.6 Platelet Count 353 289 Mean Platelet Volume 8.6 8.4 Neutrophils (%) (Auto) 90.2 85.0 Lymphocytes (%) (Auto) 7.0 11.1 Monocytes (%) (Auto) 2.2 3.8 Eosinophils (%) (Auto) 0.1 0.0 Basophils (%) (Auto) 0.5 0.1 Neutrophils # (Auto) 9.3 8.4 Lymphocytes # (Auto) 0.7 1.1 Monocytes # (Auto) 0.2 0.4 Eosinophils # (Auto) 0.0 0.0 Basophils # (Auto) 0.0 0.0 CBC Comment DIFF FINAL DIFF FINAL Differential Comment Blood Urea Nitrogen 13 9 Creatinine 0.97 0.76 Random Glucose 126 86 Total Protein 7.5 6.4 Albumin 3.6 3.1 Calcium Level 8.9 8.4 Alkaline Phosphatase 441 407 Aspartate Amino Transf (AST/SGOT) 538 365 Alanine Aminotransferase (ALT/SGPT) 476 428 Total Bilirubin 2.1 2.2 Sodium Level 137 141 Potassium Level 5.2 4.2 Chloride Level 108 111 Carbon Dioxide Level 22.6 23.3 Anion Gap 6 7 Estimat Glomerular Filtration Rate 63 84 Lipase 93331 78784 Prothrombin Time 10.7 Prothromb Time International Ratio 1.0 Activated Partial Thromboplast Time 26.6 Date/Time Source Procedure Growth Status 12/24/16 14:15 Urine Random Urine Urine Culture Pending Received Cardiovascular: Regular Lungs: Clear Abdomen: Non-distended, Non-tender Extremities: No edema A/P Assessment and Plan 41 year old female with GS pancreatitis -GI planning ERCP today -Follow lipase ---13K today -NPO -Will need a lap dinah at some point once pancreatitis resolved -Will continue to follow Attending Note - Dr. Yuniel Cat to perform ERCP today or tomorrow Pain much improved today Lap dinah in next few days; discussed with patient and The exam, history, and the medical decision-making described in the above note were completed with the assistance of the mid-level provider. I reviewed and agree with the findings presented. I attest that I had a [id number] encounter with the patient on the same day, and personally performed and documented my assessment and findings in the medical record. Willa Canas Dec 25, 2016 10:27 David Brice MD Dec 25, 2016 16:24
[2016-12-25 11:30] VITALS: BP 132/67; PULSE 71; RESP 18; TEMP 97.6; O2SAT 95
--- NOTE | 2016-12-25 11:35 | HHI.FPPN ---
Subjective Remarks Patient continues to have pain, however it is improving with fluids and pain medication. She denies any chest pain, shortness of breath, fever, chills. She continues to have nausea and decreased appetite. Vitals are stable, patient remains afebrile. She is currently 3 weeks and continues to have a small amount of vaginal bleeding and discharge. She denies any urinary symptoms including urgency, increased frequency, or dysuria. (Willa Cline MD, R3) Objective Vitals Vital Signs Date Time Temp Pulse Resp B/P (MAP) Pulse Ox O2 Delivery O2 Flow Rate FiO2 12/25/16 08:00 98.2 77 17 127/80 (96) 99 12/25/16 04:15 97.7 71 18 116/69 (85) 99 12/24/16 23:47 96.8 64 18 124/73 (90) 98 12/24/16 20:14 97.9 60 17 145/88 (107) 100 12/24/16 18:45 12/24/16 16:02 62 18 149/82 (104) 95 Room Air 12/24/16 13:38 98.4 63 22 156/96 (116) 96 I/O 12/24/16 12/24/16 12/24/16 12/25/16 12/25/16 12/25/16 07:00 15:00 23:00 07:00 15:00 23:00 Intake Total 1210 ml 1550 ml Balance 1210 ml 1550 ml Intake Oral 0 ml 0 ml IV Total 1210 ml 1550 ml # Voids 1 2 # Bowel Movements 0 0 (Willa Cline MD, R3) Result Diagram: 12/25/16 0604 12/25/16 0604 Imaging Last Impressions Gall Bladder Ultrasound 12/24/16 0000 Signed Impressions: Service Date/Time: Saturday, December 24, 2016 14:21 - CONCLUSION: Stone in the neck of the gallbladder with tenderness over the gallbladder. Wall thickness is normal. There is no fluid around the gallbladder. Gordon Vo MD FACR Cholangiopancreatography MRI 12/24/16 0000 Signed Impressions: Service Date/Time: Saturday, December 24, 2016 17:16 - CONCLUSION: Multiple small gallstones and distal common duct stone associated with pancreatitis. Mild gallbladder wall thickening is evident. Gordon Vo MD FACR Objective Remarks GENERAL: Well-nourished, well-developed female in no acute distress. SKIN: Warm and dry. No rashes or lesions. HEAD: Normocephalic. EYES: No scleral icterus. No injection or drainage. NECK: Supple, trachea midline. No JVD or lymphadenopathy. CARDIOVASCULAR: Regular rate and rhythm without murmurs, gallops, or rubs. RESPIRATORY: Breath sounds equal bilaterally. No accessory muscle use. GASTROINTESTINAL: Abdomen soft, non-tender, nondistended. Bowel sounds present and active. GENITOURINARY: Minimal vaginal bleeding and clots. MUSCULOSKELETAL: No cyanosis, or edema. NEURO: Alert, awake, and oriented x 3. PSYCH: Normal mood and affect. Appropriate insight and judgement. (Willa Cline MD, R3) A/P Assessment and Plan 41-year-old female who presented with acute epigastric pain and admitted for acute pancreatitis. Discharge Planning Anticipate discharge in 2-3 days pending resolution of pancreatitis (Willa Cline MD, R3) Attending Attestation Patient seen and examined. Case reviewed and discussed with the resident team. Agree with plan of care as discussed with me and documented in the resident note. saw her after ERCP. Fortunately he lipase dropped dramatically. she will try clear liquids and may have cholecystectomy on per pt and doing well with good current pain control (Rachna Garcia MD) Problem List: (1) Acute gallstone pancreatitis ICD Codes: K85.10 - Biliary acute pancreatitis without necrosis or infection Status: Acute Plan: 12/24 gallbladder ultrasound significant for stone in the neck of the gallbladder, normal wall thickness, no surrounding fluid /3 MRCP significant for multiple small gallstones and distal common duct stone associated with pancreatitis, mild gallbladder wall thickening evident -[place] [address] to [address] today -AST/ALT trending down from 538/476 to 365/428, and alkaline phosphatase trending down from 441 to 407 today Plan: -GI consulted, appreciate recommendations. Plan for ERCP. -Gen. surgery consulted- appreciate recommendations, plan for lap dinah after resolution of pancreatitis -NPO -Continue to trend lipase/LFTs -Maintenance NS @ 150 mL's per hour -Toradol 30 mg by mouth every 6 hours -Dilaudid 1 mg IV every 3 hours when necessary breakthrough pain - Zofran 4 mg IV push every 6 hours when necessary nausea vomiting (2) UTI (urinary tract infection) ICD Codes: N39.0 - Urinary tract infection, site not specified Status: Acute Plan: -UA significant for large occult blood, moderate leukocyte esterase, 30 white blood cells, and moderate bacteria -Urine culture pending - Asymptomatic- UA results likely secondary to contamination from vaginal bleeding/discharge in period -s/p aztreonam 1 g IV and gentamicin 400 mg IV, will transition to PO antibiotics for acute uncomplicated cystitis pending urine culture results with Nitrofurantoin 100mg PO BID x 5 days (3) FEN/DVT PPX/GI PPX/Nursing Orders Status: Acute Plan: Fluids: NS @150 mls/hr IV Electrolytes: wnl, monitor and replace as needed Nutrition: NPO DVT Prophylaxis: Heparin 5000units SQ Q8h and bilateral SCDs History of diet-controlled Gestational Diabetes- monitor Accuchecks and consider low dose SSI if needed dw Dr. Garcia (Willa Cline MD, R3) Problem Qualifiers (1) UTI (urinary tract infection): Qualified Codes: N30.01 - Acute cystitis with hematuria Willa Cline MD, R3 Dec 25, 2016 11:35 Rachna Garcia MD Dec 25, 2016 16:18
[2016-12-25] MEDS ORDERED: PROPOFOL 200 MG/20 ML AMP IV ONE (11:40)
[2016-12-25] MEDS ORDERED: IOHEXOL 300 MG/ML 50 ML BTL (for RAD DIAG) OTHER ONE (11:40)
[2016-12-25] MEDS ORDERED: LACTATED RINGER'S 1000 ML INJ 1,000 ML IV ONE (12:00)
[2016-12-25] MEDS ORDERED: ONDANSETRON HCL 4 MG/2 ML VIAL IV PUSH ONE (12:00)
--- NOTE | 2016-12-25 12:07 | PD.PROCEDR ---
GI Procedure REFERRING PHYSICIAN Dr. Gonzalez PROCEDURE PERFORMED ERCP with sphincterotomy and balloon extraction INDICATION FOR PROCEDURE Acute pancreatitis with choledocholithiasis and cholelithiasis PROCEDURE: The procedure, risks and benefits were discussed with Ms. Niño and informed consent was obtained. Anesthesia did general anesthesia and sedated her with Diprivan. She was placed in the prone position. ERCP: Patient was placed in a prone position. The Pentax videoscope was introduced through the oropharynx and advanced to the second portion of the duodenum where the ampula was identified. FINDINGS: The ampulla appeared to be bulging somewhat and it was difficult to cannulate the common bile duct and initial cannulation was that of the pancreatic duct which appeared to be unremarkable but as we did that a small fragment of stone was noted to come out and so a blind sphincterotomy was performed and the stone fell out and I was able to cannulate the common bile duct which appeared to be unremarkable but I went ahead and did the balloon sweep so as to confirm clearance of all stones and subsequently an obstructive cholangiogram was performed and there were no further filling defects ESTIMATED BLOOD LOSS: None SPECIMENS REMOVED: None COMPLICATIONS: None IMPRESSION: Choledocholithiasis PLAN: Patient will be given indomethacin suppository 100 mg Keep nothing by mouth for now Monitor labs Laparoscopic cholecystectomy when stable clinically Kai Cat MD Dec 25, 2016 12:07
[2016-12-25] MEDS ORDERED: DO NOT ADM ANY ANTICOAGULANT DRUGS PRN (12:11)
[2016-12-25] MEDS ORDERED: INDOMETHACIN 50 MG SUPP RECTAL ONE (12:15)
--- NOTE | 2016-12-25 12:29 | RADRPT ---
EXAM DATE/TIME: 12/25/2016 11:57 [facility] COMPARISON: No previous studies available for comparison. INDICATIONS : Obstruction; cholelithiasis. FLUORO TIME: 2.1 minutes IMAGE COUNT: 4 CONTRAST: Instilled by Ordering Physician MEDICAL HISTORY : None. SURGICAL HISTORY : None. ENCOUNTER: Initial ACUITY: 2 days PAIN SCORE: Non-responsive. LOCATION: Abdomen. FINDINGS: 4 spot intraoperative fluoroscopic views from an ERCP demonstrate contrast within the common bile lai t and pancreatic duct without obvious filling defects. CONCLUSION: ERCP as above. Reggie Gallego MD on December 25, 2016 at 12:26 Board Certified Radiologist. This report was verified electronically.
[2016-12-25] MEDS: HEPARIN SODIUM - SQ 10,000 UNITS/ML VIAL SQ SCH ×2 (13:37→22:47)
[2016-12-25 16:00] VITALS: BP 142/82; PULSE 76; RESP 18; TEMP 99; O2SAT 99
[2016-12-25] MEDS: NITROFURANTOIN MONOHYD MACROCR 100 MG CAP PO SCH (17:57)
--- NOTE | 2016-12-25 19:56 | MB ---
cc: SYLVIA NO M.D. DATE OF CONSULTATION 12/25/16 REASON FOR CONSULTATION Chest pain. HISTORY OF PRESENT ILLNESS Mrs. Niño is a 41-year-old female with history of high blood pressure, gestational diabetes mellitus, obesity, recent labor and delivery on November 30, 2009 admitted due to chest pain. Epigastric pain. Cholelithiasis __ diagnosed. ERCP was performed. I was consulted for evaluation and management. The chart was reviewed. The patient was evaluated. ALLERGIES PENICILLIN, LATEX. SOCIAL HISTORY Denies smoking and drinking. FAMILY HISTORY Noncontributory to her current medical condition. MEDICATIONS Currently, the patient is on: 1. Azactam. 2. Gentamicin. 3. Heparin subcu. 4. Dilaudid. REVIEW OF SYSTEMS She refers feeling better after the ERCP. No chest pain or chest discomfort. PHYSICAL EXAMINATION GENERAL: Alert, fully oriented. VITAL SIGNS: Her blood pressure 127/75, pulse 75, respiratory rate 16 to 18. LUNGS: Ventilated. CARDIOVASCULAR: S1-S2, no gallop. No murmur. ABDOMEN: Obese. No mass or bruit. EXTREMITIES: No edema. CARDIOLOGY STUDIES Electrocardiogram indicated sinus rhythm. No acute ST and T-wave changes. LABORATORY DATA Hemoglobin 11.6, white blood cell 9.8, potassium 4.2, creatinine 0.76. Lipase was over 36,000 on hospitalization, currently over 13,000. ALT is close to 370, ALT around 430. INR 1.0. RECOMMENDATIONS Mrs. Niño is stable. Doing better since the ERCP. No chest pain or chest discomfort. She has murmur in the past. I cannot localize that murmur at this point. She is doing better. My recommendation, continue with current management. I will be available on a p.r.n. basis. Sylvia No MD HS/EO /5:18 PM /7:34 PM
--- NOTE | 2016-12-25 20:02 | EKG ---
Date Performed: 12/25/2016 Time Performed: 04:01:54 PTAGE: 41 years EKG: Sinus rhythm Normal ECG NO PREVIOUS TRACING DOCTOR: Todd Fink Interpretating Date/Time 12/25/2016 19:59:59
[2016-12-25 20:20] VITALS: BP 135/68; PULSE 83; RESP 16; TEMP 99.9; O2SAT 97
[2016-12-25 23:50] VITALS: BP 133/71; PULSE 88; RESP 16; TEMP 99.5; O2SAT 98
[2016-12-26] MEDS: DEXT 5%-NACL 0.45% 1000 ML INJ 1,000 ML IV SCH ×4 (00:06→22:32)
[2016-12-26] MEDS: KETOROLAC TROMETHAMINE 30 MG/ML (IVP) VIAL IVP SCH ×4 (02:09→19:50)
[2016-12-26] MEDS: ONDANSETRON HCL 4 MG/2 ML VIAL IV PRN ×3 (02:09→23:37)
[2016-12-26] MEDS: HYDROmorphone HCL PF 1 MG/ML VIAL IV PRN ×6 (02:09→23:39)
[2016-12-26 04:15] VITALS: BP 129/68; PULSE 90; RESP 17; TEMP 98.4; O2SAT 97
[2016-12-26] MEDS: HEPARIN SODIUM - SQ 10,000 UNITS/ML VIAL SQ SCH ×4 (06:07→22:31)
[2016-12-26 08:00] VITALS: BP 133/88; PULSE 82; RESP 16; TEMP 99.9; O2SAT 100
[2016-12-26 08:30] VITALS: O2SAT 97
[2016-12-26] MEDS: NITROFURANTOIN MONOHYD MACROCR 100 MG CAP PO SCH (08:47)
[2016-12-26] MEDS: SODIUM CHLORIDE 0.9% FLUSH 10 ML FLUSH IV FLUSH SCH ×2 (08:48→21:00)
[2016-12-26 09:45] LABS: AUTOMATED NEUTROPHIL # 6.4 TH/MM3 (1.8-7.7); BASOPHIL % 0.2 % (0.0-2.0); EOSINOPHIL % 0.6 % (0.0-4.0); HEMATOCRIT 35.8 % (35.0-46.0); HEMO FLAGS DIFF FINAL; LYMPH % 15.5 % (9.0-44.0); LYMPHOCYTE # 1.3 TH/MM3 (1.0-4.8); MEAN CELL VOLUME 74.8 FL (80.0-100.0); MEAN CORPUSCULAR HEMOGLOBIN 22.8 PG (27.0-34.0); MEAN CORPUSCULAR HGB CONC 30.5 % (32.0-36.0); MONO % 6.3 % (0.0-8.0); NEUT % 77.4 % (16.0-70.0); PLATELET COUNT 233 TH/MM3 (150-450); RED BLOOD COUNT 4.79 MIL/MM3 (4.00-5.30); RED CELL DISTRIBUTION WIDTH 20.7 % (11.6-17.2); WHITE BLOOD COUNT 8.3 TH/MM3 (4.0-11.0)
[2016-12-26 10:20] LABS: BICARBONATE 22.7 MEQ/L (21.0-32.0); CALCIUM-PROTEIN CORRECTED 8.1 MG/DL (8.5-10.1); POTASSIUM 3.8 MEQ/L (3.5-5.1); TOTAL BILIRUBIN ADULT 0.7 MG/DL (0.2-1.0)
--- NOTE | 2016-12-26 10:51 | HHI.FPPN ---
Subjective Remarks No acute issues overnight. Patient had ERCP yesterday with sphincterotomy and balloon extraction. She continues to have some abdominal tenderness particularly in her right upper quadrant and has had a couple episodes of diarrhea. She denies any chest pain, shortness of breath, fever, chills, nausea , or vomiting. She is not feeling ready to eat at this time, but would like to start with clear liquids once her appetite returns. (Willa Cline MD, R3) Objective Vitals Vital Signs Date Time Temp Pulse Resp B/P (MAP) Pulse Ox O2 Delivery O2 Flow Rate FiO2 12/26/16 08:30 97 21 12/26/16 08:00 99.9 82 16 133/88 (103) 100 12/26/16 07:40 Room Air 12/26/16 04:15 98.4 90 17 129/68 (88) 97 12/25/16 23:50 99.5 88 16 133/71 (91) 98 12/25/16 21:48 21 12/25/16 20:20 99.9 83 16 135/68 (90) 97 12/25/16 16:00 99.0 76 18 142/82 (102) 99 12/25/16 12:45 98.7 75 14 129/75 (93) 96 Room Air 12/25/16 12:30 78 14 128/71 (90) 96 Room Air 12/25/16 12:15 88 14 129/71 (90) 91 Room Air 12/25/16 12:14 98.7 89 14 138/82 (100) 91 Room Air 12/25/16 11:30 97.6 71 18 132/67 (88) 95 I/O 12/25/16 12/25/16 12/25/16 12/26/16 12/26/16 12/26/16 07:00 15:00 23:00 07:00 15:00 23:00 Intake Total 1550 ml 1350 ml 3024 ml 1650 ml Balance 1550 ml 1350 ml 3024 ml 1650 ml Intake Oral 0 ml 0 ml 0 ml 0 ml IV Total 1550 ml 550 ml 3024 ml 1650 ml Other 800 ml # Voids 2 0 2 2 # Bowel Movements 0 0 1 2 (Willa Cline MD, R3) Result Diagram: 12/26/1641 12/26/16 0841 Imaging Last Impressions GI Procedure 12/25/16 0000 Signed Impressions: Service Date/Time: Sunday, December 25, 2016 11:57 - CONCLUSION: ERCP as above. Reggie Gallego MD Gall Bladder Ultrasound 12/24/16 0000 Signed Impressions: Service Date/Time: Saturday, December 24, 2016 14:21 - CONCLUSION: Stone in the neck of the gallbladder with tenderness over the gallbladder. Wall thickness is normal. There is no fluid around the gallbladder. Gordon Vo MD FACR Cholangiopancreatography MRI 12/24/16 0000 Signed Impressions: Service Date/Time: Saturday, December 24, 2016 17:16 - CONCLUSION: Multiple small gallstones and distal common duct stone associated with pancreatitis. Mild gallbladder wall thickening is evident. Gordon Vo MD FACR Objective Remarks GENERAL: Well-nourished, well-developed female in no acute distress. SKIN: Warm and dry. No rashes or lesions. HEAD: Normocephalic. EYES: No scleral icterus. No injection or drainage. NECK: Supple, trachea midline. No JVD or lymphadenopathy. CARDIOVASCULAR: Regular rate and rhythm without murmurs, gallops, or rubs. RESPIRATORY: Breath sounds equal bilaterally. No accessory muscle use. GASTROINTESTINAL: Abdomen soft, mildly tender to palpation in the right upper quadrant, nondistended. Bowel sounds present and active. GENITOURINARY: Minimal vaginal bleeding and clots. MUSCULOSKELETAL: No cyanosis, or edema. NEURO: Alert, awake, and oriented x 3. PSYCH: Normal mood and affect. Appropriate insight and judgement. (Willa Cline MD, R3) A/P Assessment and Plan 41-year-old female who presented with acute epigastric pain and was admitted for acute gallstone pancreatitis. Discharge Planning Anticipate discharge in 3-4 days pending resolution of pancreatitis and lap dinah. (Willa Cline MD, R3) Attending Attestation Patient seen and examined. Case reviewed and discussed with the resident team. Agree with plan of care as discussed with me and documented in the resident note. she was doing well drinking fluids when I went in the room. she has less pain from the pancreatitis (Rachna Garcia MD) Problem List: (1) Acute gallstone pancreatitis ICD Codes: K85.10 - Biliary acute pancreatitis without necrosis or infection Status: Acute Plan: Improving. 12/24 gallbladder ultrasound significant for stone in the neck of the gallbladder , normal wall thickness, no surrounding fluid 12/24 MRCP significant for multiple small gallstones and distal common duct stone associated with pancreatitis, mild gallbladder wall thickening evident -[place] [address]67[address] to 5642 today -AST/ALT and Alk phos continuing to trend down Plan: -GI consulted, appreciate recommendations. ERCP on 12/25 with sphincterotomy and balloon extraction by Dr. Cat. -Gen. surgery consulted- appreciate recommendations, plan for lap dniah on 12/28. - will advance diet once appetite returns, start with clear liquid diet -Continue to trend lipase/LFTs -Maintenance D5-1/2NS @ 150 mL's per hour -Toradol 30 mg by mouth every 6 hours -Dilaudid 1 mg IV every 3 hours when necessary breakthrough pain - Zofran 4 mg IV push every 6 hours when necessary nausea vomiting (2) UTI (urinary tract infection) ICD Codes: N39.0 - Urinary tract infection, site not specified Status: Resolved Plan: -UA significant for large occult blood, moderate leukocyte esterase, 30 white blood cells, and moderate bacteria -Urine culture growing mixed gram positive remberto, probable contaminants - Asymptomatic- UA results likely secondary to contamination from vaginal bleeding/discharge in period -s/p aztreonam 1 g IV and gentamicin 400 mg IV and Nitrofurantoin 100mg PO BID, will DC antibiotics (3) FEN/DVT PPX/GI PPX/Nursing Orders Status: Acute Plan: Fluids: D5-1/2NS @150 mls/hr IV Electrolytes: wnl, monitor and replace as needed Nutrition: Clear liquids as tolerated once appetite returns DVT Prophylaxis: Heparin 5000units SQ Q8h and bilateral SCDs History of diet-controlled Gestational Diabetes- Accuchecks ranging 70-80, fluids as above dw Dr. Garcia (Willa Cline MD, R3) Problem Qualifiers (1) UTI (urinary tract infection): Qualified Codes: N30.01 - Acute cystitis with hematuria Willa Cline MD, R3 Dec 26, 2016 10:51 Rachna Garcia MD Dec 26, 2016 15:48
--- NOTE | 2016-12-26 11:25 | HHI.GIFU ---
Subjective Remarks Resting in bed. Feeling slightly improved, but still with abdominal pain. C/O 1 loose stool today. Low grade fever of 99.9. Objective Vitals I&O Vital Signs Date Time Temp Pulse Resp B/P (MAP) Pulse Ox O2 Delivery O2 Flow Rate FiO2 12/26/16 08:30 97 21 12/26/16 08:00 99.9 82 16 133/88 (103) 100 12/26/16 07:40 Room Air 12/26/16 04:15 98.4 90 17 129/68 (88) 97 12/25/16 23:50 99.5 88 16 133/71 (91) 98 12/25/16 21:48 21 12/25/16 20:20 99.9 83 16 135/68 (90) 97 12/25/16 16:00 99.0 76 18 142/82 (102) 99 12/25/16 12:45 98.7 75 14 129/75 (93) 96 Room Air 12/25/16 12:30 78 14 128/71 (90) 96 Room Air 12/25/16 12:15 88 14 129/71 (90) 91 Room Air 12/25/16 12:14 98.7 89 14 138/82 (100) 91 Room Air 12/25/16 11:30 97.6 71 18 132/67 (88) 95 I/O 12/25/16 12/25/16 12/25/16 12/26/16 12/26/16 12/26/16 07:00 15:00 23:00 07:00 15:00 23:00 Intake Total 1550 ml 1350 ml 3024 ml 1650 ml Balance 1550 ml 1350 ml 3024 ml 1650 ml Intake Oral 0 ml 0 ml 0 ml 0 ml IV Total 1550 ml 550 ml 3024 ml 1650 ml Other 800 ml # Voids 2 0 2 2 # Bowel Movements 0 0 1 2 Laboratory Laboratory Tests Test 12/26/16 08:41 White Blood Count 8.3 Red Blood Count 4.79 Hemoglobin 10.9 Hematocrit 35.8 Mean Corpuscular Volume 74.8 Mean Corpuscular Hemoglobin 22.8 Mean Corpuscular Hemoglobin Concent 30.5 Red Cell Distribution Width 20.7 Platelet Count 233 Mean Platelet Volume 8.3 Neutrophils (%) (Auto) 77.4 Lymphocytes (%) (Auto) 15.5 Monocytes (%) (Auto) 6.3 Eosinophils (%) (Auto) 0.6 Basophils (%) (Auto) 0.2 Neutrophils # (Auto) 6.4 Lymphocytes # (Auto) 1.3 Monocytes # (Auto) 0.5 Eosinophils # (Auto) 0.0 Basophils # (Auto) 0.0 CBC Comment DIFF FINAL Differential Comment Blood Urea Nitrogen 7 Creatinine 0.62 Random Glucose 86 Total Protein 5.8 Albumin 2.7 Calcium Level 7.4 Alkaline Phosphatase 346 Aspartate Amino Transf (AST/SGOT) 139 Alanine Aminotransferase (ALT/SGPT) 269 Total Bilirubin 0.7 Sodium Level 139 Potassium Level 3.8 Chloride Level 108 Carbon Dioxide Level 22.7 Anion Gap 8 Estimat Glomerular Filtration Rate 106 Protein Corrected Calcium 8.1 Lipase 5642 Date/Time Source Procedure Growth Status 12/24/16 14:15 Urine Random Urine Urine Culture - Final 10-50,000 CFU/ML MIXED GRAM POSITIVE ... Complete Imaging Last Impressions GI Procedure 12/25/16 0000 Signed Impressions: Service Date/Time: Sunday, December 25, 2016 11:57 - CONCLUSION: ERCP as above. Reggie Gallego MD Gall Bladder Ultrasound 12/24/16 0000 Signed Impressions: Service Date/Time: Saturday, December 24, 2016 14:21 - CONCLUSION: Stone in the neck of the gallbladder with tenderness over the gallbladder. Wall thickness is normal. There is no fluid around the gallbladder. Gordon Vo MD FACR Cholangiopancreatography MRI 12/24/16 0000 Signed Impressions: Service Date/Time: Saturday, December 24, 2016 17:16 - CONCLUSION: Multiple small gallstones and distal common duct stone associated with pancreatitis. Mild gallbladder wall thickening is evident. Gordon Vo MD FACR Physical Exam HEENT: Normocephalic; atraumatic; no jaundice. CHEST: CTA CARDIAC: RRR ABDOMEN: Soft, nondistended, mild to moderate epigastric/left sided/mid abdominal tenderness; no hepatosplenomegaly; bowel sounds are quiet. EXTREMITIES: No clubbing, cyanosis, or edema. SKIN: Normal; no rash; no jaundice. PHARMACY INTERN: No focal deficits; alert and oriented times three. Assessment and Plan Plan Impression: - Gallstone pancreatitis. US (12/24/16)---> stone in the neck of the gallbladder with tenderness over the gallbladder. Wall thickness is normal. There is no fluid around the gallbladder. MRCP (12/24/16)---> multiple small gallstones and distal common duct stone associated with pancreatitis. Mild gallbladder wall thickening is evident. S/P ERCP with sphincterotomy and balloon extraction (12/25/16)---> choledocholithiasis. GS following for lap. cholecystectomy once pancreatitis resolves. Lipase improving 36,423 ----> 13,017----> 5,642. NPO. IVF. - Choledocholithiasis. S/P ERCP with sphincterotomy and balloon extraction as above. LFTs improving. T. Bili 0.7, AST 139, ALT 269, Alk Phosph 346. - Cholelithiasis. GS following, for lap. cholecystectomy once pancreatitis improves. Plan: - NPO - IVF - LFT, Lipase in am - GS following - Supportive care - Further recommendations to follow based on results of above - Pt seen and examined by Dr. Ho and myself and this note is written on his behalf Scarlet Ventura Dec 26, 2016 11:25
--- NOTE | 2016-12-26 11:37 | HHI.PR ---
Subjective Subjective Notes Resting in bed at bedside No issues overnight Dilaudid helps with abdominal pain Objective Vitals/I&O Vital Signs Date Time Temp Pulse Resp B/P (MAP) Pulse Ox O2 Delivery O2 Flow Rate FiO2 12/26/16 08:30 97 21 12/26/16 08:00 99.9 82 16 133/88 (103) 12/26/16 07:40 Room Air Labs Laboratory Tests Test 12/26/16 08:41 White Blood Count 8.3 Red Blood Count 4.79 Hemoglobin 10.9 Hematocrit 35.8 Mean Corpuscular Volume 74.8 Mean Corpuscular Hemoglobin 22.8 Mean Corpuscular Hemoglobin Concent 30.5 Red Cell Distribution Width 20.7 Platelet Count 233 Mean Platelet Volume 8.3 Neutrophils (%) (Auto) 77.4 Lymphocytes (%) (Auto) 15.5 Monocytes (%) (Auto) 6.3 Eosinophils (%) (Auto) 0.6 Basophils (%) (Auto) 0.2 Neutrophils # (Auto) 6.4 Lymphocytes # (Auto) 1.3 Monocytes # (Auto) 0.5 Eosinophils # (Auto) 0.0 Basophils # (Auto) 0.0 CBC Comment DIFF FINAL Differential Comment Blood Urea Nitrogen 7 Creatinine 0.62 Random Glucose 86 Total Protein 5.8 Albumin 2.7 Calcium Level 7.4 Alkaline Phosphatase 346 Aspartate Amino Transf (AST/SGOT) 139 Alanine Aminotransferase (ALT/SGPT) 269 Total Bilirubin 0.7 Sodium Level 139 Potassium Level 3.8 Chloride Level 108 Carbon Dioxide Level 22.7 Anion Gap 8 Estimat Glomerular Filtration Rate 106 Protein Corrected Calcium 8.1 Lipase 5642 Date/Time Source Procedure Growth Status 12/24/16 14:15 Urine Random Urine Urine Culture - Final 10-50,000 CFU/ML MIXED GRAM POSITIVE ... Complete Cardiovascular: Regular Lungs: Clear Abdomen: Non-distended, Non-tender Extremities: No edema A/P Assessment and Plan 41 year old female with GS pancreatitis -s/p ERCP yesterday with stent placement -Follow lipase ---5642 today -Start sips of clear liquids -Will need a lap dinah at some point once pancreatitis resolved -Will continue to follow -Lipase in AM; depending on value with tentatively plan for lap dinah tomorrow; NPO after MN Attending Statement patient seen and examined lipase continues to trend down still high will plan for OR tomorrow pending lipase Attestation The exam, history, and the medical decision-making described in the above note were completed with the assistance of the mid-level provider. I reviewed and agree with the findings presented. I attest that I had a [id number] encounter with the patient on the same day, and personally performed and documented my assessment and findings in the medical record. Willa Canas Dec 26, 2016 11:37 Jean Vaz MD Dec 30, 2016 18:40
[2016-12-26 12:00] VITALS: BP 140/75; PULSE 83; RESP 16; TEMP 99; O2SAT 100
[2016-12-26 16:00] VITALS: BP 138/72; PULSE 102; RESP 16; TEMP 98.7; O2SAT 98
[2016-12-26 20:15] VITALS: BP 131/78; PULSE 77; RESP 16; TEMP 98.8; O2SAT 98
[2016-12-27 01:00] VITALS: BP 144/78; PULSE 91; RESP 16; TEMP 98.7; O2SAT 99
[2016-12-27] MEDS: KETOROLAC TROMETHAMINE 30 MG/ML (IVP) VIAL IVP SCH ×4 (01:19→19:38)
[2016-12-27] MEDS: HYDROmorphone HCL PF 1 MG/ML VIAL IV PRN ×6 (02:28→19:38)
[2016-12-27] MEDS: DEXT 5%-NACL 0.45% 1000 ML INJ 1,000 ML IV SCH ×3 (02:30→16:25)
[2016-12-27 04:50] VITALS: BP 135/82; PULSE 85; RESP 16; TEMP 98; O2SAT 97
[2016-12-27] MEDS: ONDANSETRON HCL 4 MG/2 ML VIAL IV PRN ×3 (04:58→19:38)
[2016-12-27 07:46] LABS: AUTOMATED NEUTROPHIL # 5.3 TH/MM3 (1.8-7.7); BASOPHIL % 0.5 % (0.0-2.0); EOSINOPHIL # 0.2 TH/MM3 (0-0.4); EOSINOPHIL % 2.4 % (0.0-4.0); HEMATOCRIT 34.5 % (35.0-46.0); HEMO FLAGS DIFF FINAL; LYMPH % 20.2 % (9.0-44.0); LYMPHOCYTE # 1.5 TH/MM3 (1.0-4.8); MEAN CELL VOLUME 74.5 FL (80.0-100.0); MEAN CORPUSCULAR HEMOGLOBIN 22.8 PG (27.0-34.0); MEAN CORPUSCULAR HGB CONC 30.6 % (32.0-36.0); MONO % 6.7 % (0.0-8.0); NEUT % 70.2 % (16.0-70.0); PLATELET COUNT 234 TH/MM3 (150-450); RED BLOOD COUNT 4.63 MIL/MM3 (4.00-5.30); RED CELL DISTRIBUTION WIDTH 20.7 % (11.6-17.2); WHITE BLOOD COUNT 7.5 TH/MM3 (4.0-11.0)
[2016-12-27 08:00] VITALS: BP 138/88; PULSE 67; RESP 16; TEMP 98; O2SAT 98
[2016-12-27 08:44] LABS: ALT (GPT) 181 U/L (10-53); ANION GAP 5 MEQ/L (5-15); AST (GOT) 63 U/L (15-37); BICARBONATE 25.8 MEQ/L (21.0-32.0); BLOOD UREA NITROGEN 5 MG/DL (7-18); CHLORIDE 110 MEQ/L (98-107); GLOMERULAR FILTRATION RATE 97 ML/MIN (>89); POTASSIUM 3.6 MEQ/L (3.5-5.1); SODIUM (NA) 141 MEQ/L (136-145)
[2016-12-27 08:46] LABS: ALKALINE PHOSPHATASE 271 U/L (45-117); TOTAL BILIRUBIN ADULT 0.5 MG/DL (0.2-1.0)
[2016-12-27] MEDS: SODIUM CHLORIDE 0.9% FLUSH 10 ML FLUSH IV FLUSH SCH ×2 (08:48→19:39)
--- NOTE | 2016-12-27 09:02 | HHI.FPPN ---
Subjective Remarks No acute issues overnight. Vitals are stable, patient remains afebrile. She was able to tolerate clear liquids last night without nausea or vomiting. She has not had a bowel movement since her diarrhea yesterday morning. She continues to have mild upper abdominal pain but denies any chest pain, shortness of breath, fever, chills, or leg pain. She is ambulating without difficulty. (Willa Cline MD, R3) Objective Vitals Vital Signs Date Time Temp Pulse Resp B/P (MAP) Pulse Ox O2 Delivery O2 Flow Rate FiO2 12/27/16 07:24 Room Air 12/27/16 04:50 98.0 85 16 135/82 (99) 97 12/27/16 01:00 98.7 91 16 144/78 (100) 99 12/26/16 20:15 98.8 77 16 131/78 (95) 98 12/26/16 16:00 98.7 102 16 138/72 (94) 98 12/26/16 12:00 99.0 83 16 140/75 (96) 100 I/O 12/26/16 12/26/16 12/26/16 12/27/16 12/27/16 12/27/16 07:00 15:00 23:00 07:00 15:00 23:00 Intake Total 1650 ml 360 ml 0 ml Balance 1650 ml 360 ml 0 ml Intake Oral 0 ml 360 ml 0 ml IV Total 1650 ml # Voids 2 2 2 # Bowel Movements 2 0 0 (Willa Cline MD, R3) Result Diagram: 12/27/16 0630 12/27/16 0630 Imaging Last Impressions GI Procedure 12/25/16 0000 Signed Impressions: Service Date/Time: Sunday, December 25, 2016 11:57 - CONCLUSION: ERCP as above. Reggie Gallego MD Gall Bladder Ultrasound 12/24/16 0000 Signed Impressions: Service Date/Time: Saturday, December 24, 2016 14:21 - CONCLUSION: Stone in the neck of the gallbladder with tenderness over the gallbladder. Wall thickness is normal. There is no fluid around the gallbladder. Gordon Vo MD FACR Cholangiopancreatography MRI 12/24/16 0000 Signed Impressions: Service Date/Time: Saturday, December 24, 2016 17:16 - CONCLUSION: Multiple small gallstones and distal common duct stone associated with pancreatitis. Mild gallbladder wall thickening is evident. Gordon Vo MD FACR Objective Remarks GENERAL: Well-nourished, well-developed female in no acute distress. SKIN: Warm and dry. No rashes or lesions. HEAD: Normocephalic. EYES: No scleral icterus. No injection or drainage. NECK: Supple, trachea midline. No JVD or lymphadenopathy. CARDIOVASCULAR: Regular rate and rhythm without murmurs, gallops, or rubs. RESPIRATORY: Breath sounds equal bilaterally. No accessory muscle use. GASTROINTESTINAL: Abdomen soft, mildly tender to palpation in the upper abdomen , nondistended. Bowel sounds present and active. MUSCULOSKELETAL: No cyanosis, or edema. NEURO: Alert, awake, and oriented x 3. PSYCH: Normal mood and affect. Appropriate insight and judgement. (Willa Cline MD, R3) A/P Assessment and Plan 41-year-old female who presented with acute epigastric pain and was admitted for acute gallstone pancreatitis. Discharge Planning Anticipate discharge in 1-3 days pending resolution of pancreatitis and lap dinah. (Willa Cline MD, R3) Attending Attestation Patient seen and examined. Case reviewed and discussed with the resident team. Agree with plan of care as discussed with me and documented in the resident note. she is improved, eating jello without problems and feels little pain at rest. anticipate cholecystectomy tomorrow (Rachna Garcia MD) Problem List: (1) Acute gallstone pancreatitis ICD Codes: K85.10 - Biliary acute pancreatitis without necrosis or infection Status: Acute Plan: Improving. 12/24 gallbladder ultrasound significant for stone in the neck of the gallbladder , normal wall thickness, no surrounding fluid 12/24 MRCP significant for multiple small gallstones and distal common duct stone associated with pancreatitis, mild gallbladder wall thickening evident -Lipase trending down from 5642 to 1132 today -AST/ALT and Alk phos continuing to trend down Plan: -GI consulted, appreciate recommendations. ERCP on 12/25 with sphincterotomy and balloon extraction by Dr. Cat. -Gen. surgery consulted- appreciate recommendations, plan for lap dinah today or tomorrow. -Clear liquid diet, advance as tolerated post-operatively -Continue to trend lipase/LFTs -Maintenance D5-1/2NS @ 150 mL's per hour -Toradol 30 mg by mouth every 6 hours -Dilaudid 1 mg IV every 3 hours when necessary breakthrough pain - Zofran 4 mg IV push every 6 hours when necessary nausea vomiting (2) FEN/DVT PPX/GI PPX/Nursing Orders Status: Acute Plan: Fluids: D5-1/2NS @150 mls/hr IV Electrolytes: wnl, monitor and replace as needed Nutrition: Clear liquids as tolerated, currently NPO in anticipation of surgery DVT Prophylaxis: Heparin 5000units SQ Q8h and bilateral SCDs History of diet-controlled Gestational Diabetes- Accuchecks ranging 70-105, fluids as above dw Dr. Garcia (Willa Cline MD, R3) Willa Cline MD, R3 Dec 27, 2016 09:02 Rachna Garcia MD Dec 27, 2016 16:36
--- NOTE | 2016-12-27 11:40 | HHI.GIFU ---
Subjective Remarks Resting in bed. Continues to have abdominal pain although she states that this has improved from yesterday. General surgery following, possible laparoscopic cholecystectomy tomorrow Objective Vitals I&O Vital Signs Date Time Temp Pulse Resp B/P (MAP) Pulse Ox O2 Delivery O2 Flow Rate FiO2 12/27/16 08:00 98.0 67 16 138/88 (105) 98 12/27/16 07:24 Room Air 12/27/16 04:50 98.0 85 16 135/82 (99) 97 12/27/16 01:00 98.7 91 16 144/78 (100) 99 12/26/16 20:15 98.8 77 16 131/78 (95) 98 12/26/16 16:00 98.7 102 16 138/72 (94) 98 12/26/16 12:00 99.0 83 16 140/75 (96) 100 I/O 12/26/16 12/26/16 12/26/16 12/27/16 12/27/16 12/27/16 06:59 14:59 22:59 06:59 14:59 22:59 Intake Total 1650 ml 360 ml 0 ml Balance 1650 ml 360 ml 0 ml Intake Oral 0 ml 360 ml 0 ml IV Total 1650 ml # Voids 2 2 2 # Bowel Movements 2 0 0 Laboratory Laboratory Tests Test 12/27/16 06:30 White Blood Count 7.5 Red Blood Count 4.63 Hemoglobin 10.6 Hematocrit 34.5 Mean Corpuscular Volume 74.5 Mean Corpuscular Hemoglobin 22.8 Mean Corpuscular Hemoglobin Concent 30.6 Red Cell Distribution Width 20.7 Platelet Count 234 Mean Platelet Volume 8.9 Neutrophils (%) (Auto) 70.2 Lymphocytes (%) (Auto) 20.2 Monocytes (%) (Auto) 6.7 Eosinophils (%) (Auto) 2.4 Basophils (%) (Auto) 0.5 Neutrophils # (Auto) 5.3 Lymphocytes # (Auto) 1.5 Monocytes # (Auto) 0.5 Eosinophils # (Auto) 0.2 Basophils # (Auto) 0.0 CBC Comment DIFF FINAL Differential Comment Blood Urea Nitrogen 5 Creatinine 0.67 Random Glucose 99 Total Protein 6.0 Albumin 2.7 Calcium Level 8.2 Alkaline Phosphatase 271 Aspartate Amino Transf (AST/SGOT) 63 Alanine Aminotransferase (ALT/SGPT) 181 Total Bilirubin 0.5 Sodium Level 141 Potassium Level 3.6 Chloride Level 110 Carbon Dioxide Level 25.8 Anion Gap 5 Estimat Glomerular Filtration Rate 97 Lipase 1132 Date/Time Source Procedure Growth Status 12/24/16 14:15 Urine Random Urine Urine Culture - Final 10-50,000 CFU/ML MIXED GRAM POSITIVE ... Complete Imaging Last Impressions GI Procedure 12/25/16 0000 Signed Impressions: Service Date/Time: Sunday, December 25, 2016 11:57 - CONCLUSION: ERCP as above. Reggie Gallego MD Gall Bladder Ultrasound 12/24/16 0000 Signed Impressions: Service Date/Time: Saturday, December 24, 2016 14:21 - CONCLUSION: Stone in the neck of the gallbladder with tenderness over the gallbladder. Wall thickness is normal. There is no fluid around the gallbladder. Gordon Vo MD FACR Cholangiopancreatography MRI 12/24/16 0000 Signed Impressions: Service Date/Time: Saturday, December 24, 2016 17:16 - CONCLUSION: Multiple small gallstones and distal common duct stone associated with pancreatitis. Mild gallbladder wall thickening is evident. Gordon Vo MD FACR Physical Exam HEENT: Normocephalic; atraumatic; no jaundice. CHEST: CTA CARDIAC: RRR ABDOMEN: Soft, nondistended, mild to moderate epigastric/left sided/mid abdominal tenderness; no hepatosplenomegaly; bowel sounds are quiet. EXTREMITIES: No clubbing, cyanosis, or edema. SKIN: Normal; no rash; no jaundice. 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 Assessment and Plan Plan Impression: - Gallstone pancreatitis. US (12/24/16)---> stone in the neck of the gallbladder with tenderness over the gallbladder. Wall thickness is normal. There is no fluid around the gallbladder. MRCP (12/24/16)---> multiple small gallstones and distal common duct stone associated with pancreatitis. Mild gallbladder wall thickening is evident. S/P ERCP with sphincterotomy and balloon extraction (12/25/16)---> choledocholithiasis. GS following for lap. cholecystectomy once pancreatitis resolves. Lipase improving 36,423 ----> 13,017----> 5,642----> 1132. Clear liquids. IVF. - Choledocholithiasis. S/P ERCP with sphincterotomy and balloon extraction as above. LFTs improving. - Cholelithiasis. GS following, for lap. cholecystectomy once pancreatitis improves, possibly tomorrow. Plan: - Clear liquids - IVF - Lipase in am - GS following, possible lap cholecystectomy in am - Supportive care - Further recommendations to follow based on results of above - Pt seen and examined by Dr. Ho and myself and this note is written on his behalf Scarlet Ventura Dec 27, 2016 11:40
[2016-12-27 12:00] VITALS: BP 127/78; PULSE 69; RESP 16; TEMP 98.2; O2SAT 99
[2016-12-27] MEDS: HEPARIN SODIUM - SQ 10,000 UNITS/ML VIAL SQ SCH ×2 (14:00→21:47)
--- NOTE | 2016-12-27 14:29 | HHI.PR ---
Subjective Subjective Notes Resting in bed No issues Objective Vitals/I&O Vital Signs Date Time Temp Pulse Resp B/P (MAP) Pulse Ox O2 Delivery O2 Flow Rate FiO2 12/27/16 08:00 98.0 67 16 138/88 (105) 98 12/27/16 07:24 Room Air 12/26/16 08:30 21 Labs Laboratory Tests Test 12/27/16 06:30 White Blood Count 7.5 Red Blood Count 4.63 Hemoglobin 10.6 Hematocrit 34.5 Mean Corpuscular Volume 74.5 Mean Corpuscular Hemoglobin 22.8 Mean Corpuscular Hemoglobin Concent 30.6 Red Cell Distribution Width 20.7 Platelet Count 234 Mean Platelet Volume 8.9 Neutrophils (%) (Auto) 70.2 Lymphocytes (%) (Auto) 20.2 Monocytes (%) (Auto) 6.7 Eosinophils (%) (Auto) 2.4 Basophils (%) (Auto) 0.5 Neutrophils # (Auto) 5.3 Lymphocytes # (Auto) 1.5 Monocytes # (Auto) 0.5 Eosinophils # (Auto) 0.2 Basophils # (Auto) 0.0 CBC Comment DIFF FINAL Differential Comment Blood Urea Nitrogen 5 Creatinine 0.67 Random Glucose 99 Total Protein 6.0 Albumin 2.7 Calcium Level 8.2 Alkaline Phosphatase 271 Aspartate Amino Transf (AST/SGOT) 63 Alanine Aminotransferase (ALT/SGPT) 181 Total Bilirubin 0.5 Sodium Level 141 Potassium Level 3.6 Chloride Level 110 Carbon Dioxide Level 25.8 Anion Gap 5 Estimat Glomerular Filtration Rate 97 Lipase 1132 Date/Time Source Procedure Growth Status 12/24/16 14:15 Urine Random Urine Urine Culture - Final 10-50,000 CFU/ML MIXED GRAM POSITIVE ... Complete Cardiovascular: Regular Lungs: Clear Abdomen: Non-distended, Non-tender Extremities: No edema A/P Assessment and Plan 41 year old female with GS pancreatitis -s/p ERCP with stent placement -Follow lipase --1132 today -Clear liquids -Will need a lap dinah at some point once pancreatitis resolved -Will continue to follow -Lipase in AM; depending on value with tentatively plan for lap dinah tomorrow; NPO after MN Attending Statement patient seen at bedside still with pancreatitis but continue to improve lap dinah planning with lipase improved Attestation The exam, history, and the medical decision-making described in the above note were completed with the assistance of the mid-level provider. I reviewed and agree with the findings presented. I attest that I had a [id number] encounter with the patient on the same day, and personally performed and documented my assessment and findings in the medical record. Willa Canas Dec 27, 2016 14:29 Jean Vaz MD Dec 31, 2016 06:16
[2016-12-27 16:00] VITALS: BP 117/81; PULSE 81; RESP 16; TEMP 98.2; O2SAT 98
[2016-12-27 20:20] VITALS: BP 129/80; PULSE 78; RESP 17; TEMP 97.8; O2SAT 100
[2016-12-27] MEDS ORDERED: SODIUM CHLORID 0.9% 500 ML IV PRN (22:30)
[2016-12-27] MEDS ORDERED: LACTATED RINGER'S 1000 ML IV PRN (22:30)
[2016-12-27] MEDS ORDERED: POVIDONE IODINE 5% (ANTISEPSIS KIT) 4 APPLICATIONS EACH NARE PRN (22:30)
[2016-12-27] MEDS ORDERED: INSULIN HUMAN REGULAR 1,000 UNITS/10 ML VIAL SQ PRN (22:30)
[2016-12-27] MEDS ORDERED: CHLORHEXIDINE GLUCONATE 2 % 1 PACK (2 CLOTHS) TOPICAL PRN (22:30)
[2016-12-27] MEDS ORDERED: METOPROLOL TARTRATE 25 MG TAB PO PRN (22:30)
[2016-12-28] MEDS: HEPARIN SODIUM - SQ 10,000 UNITS/ML VIAL SQ SCH ×3 (00:05→20:15)
[2016-12-28] MEDS: HYDROmorphone HCL PF 1 MG/ML VIAL IV PRN ×5 (00:07→23:11)
[2016-12-28] MEDS: DEXT 5%-NACL 0.45% 1000 ML INJ 1,000 ML IV SCH ×5 (00:07→23:14)
[2016-12-28 00:20] VITALS: BP 129/75; PULSE 77; RESP 16; TEMP 98.4; O2SAT 99
[2016-12-28] MEDS: KETOROLAC TROMETHAMINE 30 MG/ML (IVP) VIAL IVP SCH ×4 (02:54→20:15)
[2016-12-28] MEDS: ONDANSETRON HCL 4 MG/2 ML VIAL IV PRN (02:56)
[2016-12-28 04:00] VITALS: BP 124/74; PULSE 71; RESP 16; TEMP 97.5; O2SAT 99
[2016-12-28] MEDS ORDERED: BUPIVACAINE/EPINEPHRINE 0.25% 50 ML VIAL ONE (07:56)
[2016-12-28 08:00] VITALS: BP 120/83; PULSE 80; RESP 16; TEMP 97.2; O2SAT 100
[2016-12-28] MEDS ORDERED: ACETAMINOPHEN 1000 MG/100 ML 100 ML IV ONE (08:38)
[2016-12-28] MEDS ORDERED: HYDROmorphone HCL PF 2 MG/ML VIAL ONE (08:38)
[2016-12-28] MEDS: SODIUM CHLORIDE 0.9% FLUSH 10 ML FLUSH IV FLUSH SCH ×2 (09:00→20:15)
--- NOTE | 2016-12-28 09:11 | HHI.PR ---
Immediate Post Op Note Procedure Date: Dec 28, 2016 Pre Op Diagnosis: gallstone pancreatitis Post Op Diagnosis: same Surgeon: Jean Vaz MD Horse Racing Analyst(s): see or sheet Procedure: lap dinah Findings: distended gallbladder Complications: none Specimen(s) removed: gallbladder Estimated blood loss: 5cc Anesthesia: General Drains: None Patient to: PACU Patient Condition: Good Jean Vaz MD Dec 28, 2016 09:11
[2016-12-28] MEDS ORDERED: CLINDAMYCIN PHOS 600 MG/4 ML VIAL ONE (09:18)
[2016-12-28] MEDS ORDERED: SUGAMMADEX SODIUM 200 MG/2 ML VIAL IV PUSH ONE ×2 (10:09)
[2016-12-28] MEDS ORDERED: DO NOT ADM ANY ANTICOAGULANT DRUGS PRN (10:35)
[2016-12-28] MEDS ORDERED: MIDAZOLAM HCL 2 MG/2 ML VIAL ONE (10:39)
[2016-12-28 12:00] VITALS: BP 133/74; PULSE 58; RESP 16; TEMP 97; O2SAT 98
[2016-12-28] MEDS ORDERED: ONDANSETRON HCL 4 MG/2 ML VIAL IV PUSH ONE (12:00)
[2016-12-28] MEDS ORDERED: NEOSTIGMINE 3 MG/3 ML SYR IV ONE (12:00)
[2016-12-28] MEDS ORDERED: PROPOFOL 200 MG/20 ML AMP IV ONE (12:00)
--- NOTE | 2016-12-28 13:46 | HHI.GIFU ---
Subjective Remarks S/P Lap. Keyonna. Resting in bed in no distress. Pain improved. Taking liquids. (Scarlet Ventura) Objective Vitals I&O Vital Signs Date Time Temp Pulse Resp B/P (MAP) Pulse Ox O2 Delivery O2 Flow Rate FiO2 12/28/16 11:15 98.3 68 16 129/68 (88) 100 Room Air 12/28/16 11:00 65 12 124/67 (86) 100 Room Air 12/28/16 10:45 59 15 129/70 (89) 100 Nasal Cannula 2 12/28/16 10:34 97.9 68 15 125/65 (85) 100 Nasal Cannula 2 12/28/16 04:00 97.5 71 16 124/74 (91) 99 12/28/16 00:20 98.4 77 16 129/75 (93) 99 12/27/16 20:20 97.8 78 17 129/80 (96) 100 12/27/16 16:00 98.2 81 16 117/81 (93) 98 I/O 12/27/16 12/27/16 12/27/16 12/28/16 12/28/16 12/28/16 07:00 15:00 23:00 07:00 15:00 23:00 Intake Total 0 ml 240 ml 480 ml 1480 ml 1000 ml Output Total 10 ml Balance 0 ml 240 ml 480 ml 1480 ml 990 ml Intake Oral 0 ml 240 ml 480 ml 480 ml 0 ml IV Total 1000 ml 1000 ml Output Urine Total 0 ml Estimated Blood Loss 10 ml # Voids 2 3 2 2 # Bowel Movements 0 0 0 0 Laboratory Date/Time Source Procedure Growth Status 12/24/16 14:15 Urine Random Urine Urine Culture - Final 10-50,000 CFU/ML MIXED GRAM POSITIVE ... Complete Imaging Last Impressions GI Procedure 12/25/16 0000 Signed Impressions: Service Date/Time: Sunday, December 25, 2016 11:57 - CONCLUSION: ERCP as above. Reggie Gallego MD Gall Bladder Ultrasound 12/24/16 0000 Signed Impressions: Service Date/Time: Saturday, December 24, 2016 14:21 - CONCLUSION: Stone in the neck of the gallbladder with tenderness over the gallbladder. Wall thickness is normal. There is no fluid around the gallbladder. Gordon Vo MD FACR Cholangiopancreatography MRI 12/24/16 0000 Signed Impressions: Service Date/Time: Saturday, December 24, 2016 17:16 - CONCLUSION: Multiple small gallstones and distal common duct stone associated with pancreatitis. Mild gallbladder wall thickening is evident. Gordon Vo MD FACR Physical Exam HEENT: Normocephalic; atraumatic; no jaundice. CHEST: CTA CARDIAC: RRR ABDOMEN: Soft, nondistended, mild abdominal tenderness; no hepatosplenomegaly; bowel sounds are quiet. EXTREMITIES: No clubbing, cyanosis, or edema. SKIN: Normal; no rash; no jaundice. DRUM ATTENDANT: No focal deficits; alert and oriented times three. (Scarlet Ventura) Assessment and Plan Plan Impression: - Gallstone pancreatitis. US (12/24/16)---> stone in the neck of the gallbladder with tenderness over the gallbladder. Wall thickness is normal. There is no fluid around the gallbladder. MRCP (12/24/16)---> multiple small gallstones and distal common duct stone associated with pancreatitis. Mild gallbladder wall thickening is evident. S/P ERCP with sphincterotomy and balloon extraction (12/25/16)---> choledocholithiasis. GS following for lap. cholecystectomy once pancreatitis resolves. Lipase improving 36,423 ----> 13,017----> 5,642----> 1132 (yesterday). S/P Lap. Cholecystectomy. - Choledocholithiasis. S/P ERCP with sphincterotomy and balloon extraction as above. LFTs improving (yesterday) - Cholelithiasis. S/P Lap. Keyonna per GS. Plan: - Diet per GS - IVF - Lipase in am - Supportive care - Further recommendations to follow based on results of above - Pt seen and examined by Dr. Aguila and myself and this note is written on his behalf (Scarlet Ventura) Physician Comments Patient seen and examined Agree with above Continue with current supportive care Monitor labs (Kai Cat MD) Physician Comments Patient was seen was by Dr. Cat today, will follow up tomorrow (Celeste Aguila MD) Scarlet Ventura Dec 28, 2016 13:46 Kai Cat MD Dec 28, 2016 18:32 Celeste Aguila MD Dec 28, 2016 19:28
--- NOTE | 2016-12-28 13:54 | HHI.FPPN ---
Subjective Remarks Ms Niño is doing well after her cholecystectomy. She has been up to the bathroom several times and is thirsty and taking fluids well. She has some but relatively minor pain and is breathing well and has no other complaints except those related to her abdomen. Objective Vitals Vital Signs Date Time Temp Pulse Resp B/P (MAP) Pulse Ox O2 Delivery O2 Flow Rate FiO2 12/28/16 11:15 98.3 68 16 129/68 (88) 100 Room Air 12/28/16 11:00 65 12 124/67 (86) 100 Room Air 12/28/16 10:45 59 15 129/70 (89) 100 Nasal Cannula 2 12/28/16 10:34 97.9 68 15 125/65 (85) 100 Nasal Cannula 2 12/28/16 04:00 97.5 71 16 124/74 (91) 99 12/28/16 00:20 98.4 77 16 129/75 (93) 99 12/27/16 20:20 97.8 78 17 129/80 (96) 100 12/27/16 16:00 98.2 81 16 117/81 (93) 98 I/O 12/27/16 12/27/16 12/27/16 12/28/16 12/28/16 12/28/16 07:00 15:00 23:00 07:00 15:00 23:00 Intake Total 0 ml 240 ml 480 ml 1480 ml 1000 ml Output Total 10 ml Balance 0 ml 240 ml 480 ml 1480 ml 990 ml Intake Oral 0 ml 240 ml 480 ml 480 ml 0 ml IV Total 1000 ml 1000 ml Output Urine Total 0 ml Estimated Blood Loss 10 ml # Voids 2 3 2 2 # Bowel Movements 0 0 0 0 Result Diagram: 12/27/1662912/27/1630 Objective Remarks GENERAL: Well-nourished, well-developed female in no acute distress. SKIN: Warm and dry. No rashes or lesions. HEAD: Normocephalic. EYES: No scleral icterus. No injection or drainage. NECK: Supple, trachea midline. No JVD or lymphadenopathy. CARDIOVASCULAR: Regular rate and rhythm without murmurs, gallops, or rubs. RESPIRATORY: Breath sounds equal bilaterally. No accessory muscle use. GASTROINTESTINAL: Abdomen soft, mildly tender to palpation in the upper abdomen , nondistended. Bowel sounds present and active. less pain than on prior exams MUSCULOSKELETAL: No cyanosis, or edema. NEURO: Alert, awake, and oriented x 3. PSYCH: Normal mood and affect. Appropriate insight and judgement. Urinary Catheter: No Vascular Central Line Catheter: No A/P Assessment and Plan 41-year-old female who presented with acute epigastric pain and was admitted for acute gallstone pancreatitis. She is post cholecystectomy today and is doing well. Discharge Planning Anticipate discharge likely tomorrow pending resolution of pancreatitis and lap dinah. Problem List: (1) Acute gallstone pancreatitis ICD Codes: K85.10 - Biliary acute pancreatitis without necrosis or infection Status: Acute Plan: Improving. 12/24 gallbladder ultrasound significant for stone in the neck of the gallbladder , normal wall thickness, no surrounding fluid 12/24 MRCP significant for multiple small gallstone daily from extremely high initial levels -AST/ALT and Alk phos continuing to trend down Plan: -GI consulted, appreciate recommendations. ERCP on 12/25 with sphincterotomy and balloon extraction by Dr. Cat. -Gen. surgery consulted- appreciate recommendations, had lap dinah today -Clear liquid diet, advance as tolerated post-operatively -Continue to trend lipase/LFTs as requested by GI -Maintenance D5-1/2NS @ 150 mL's per hour, can heplock if taking po well -Toradol 30 mg by mouth every 6 hours -Dilaudid 1 mg IV every 3 hours when necessary breakthrough pain - Zofran 4 mg IV push every 6 hours when necessary nausea vomiting (2) FEN/DVT PPX/GI PPX/Nursing Orders Status: Acute Plan: Fluids: D5-1/2NS @150 mls/hr IV Electrolytes: wnl, monitor and replace as needed Nutrition: Clear liquids as tolerated may advance DVT Prophylaxis: Heparin 5000units SQ Q8h and bilateral SCDs History of diet-controlled Gestational Diabetes- Accuchecks ranging 70-105, fluids as above Rachna Garcia MD Dec 28, 2016 13:53
[2016-12-28 16:00] VITALS: BP 115/70; PULSE 74; RESP 16; TEMP 97; O2SAT 98
--- NOTE | 2016-12-28 19:21 | MP ---
cc: KAILASH VAZ MD DATE OF SURGERY 12/28/16 PREOPERATIVE DIAGNOSIS Gallstone pancreatitis POSTOPERATIVE DIAGNOSIS Gallstone pancreatitis PROCEDURE PERFORMED Laparoscopic cholecystectomy SURGEON Dr. Dhaval Vaz HEAD MECHANIC See OR sheet ANESTHESIA GETA. IV FLUIDS 1000 mL ESTIMATED BLOOD LOSS 15 mL. DRAINS None COMPLICATIONS None. WOUND CLASSIFICATION Clean contaminated. SPECIMENS Gallbladder. FINDINGS Distended gallbladder, several multiple small gallstones. INDICATION The patient is a 41-year female who presented with a severe bout of pancreatitis and lipase 36,000. She had further workup including MRCP, gallbladder ultrasound showing common bile duct stones status post ERCP with stone extraction and improvement in her lipase, therefore, decision was made for laparoscopic cholecystectomy. Discussed with the patient the details and she stated understanding and agreed. PROCEDURE IN DETAIL The patient was taken to the operating suite, placed in supine position. She was prepped and draped in usual sterile fashion after induction of general endotracheal anesthesia. Brief time-out done stating correct patient, procedure, surgical site. All were in agreement with this. Attention was first directed to the umbilicus where a small stab arabella incision was made with an 11-blade. Veress needle was placed, intraabdominal placement was confirmed with saline drop test. Abdomen insufflated to 15 mm pneumoperitoneum. Three other ports were placed, one 12 mm epigastric followed by two 5 mm right subcostal ports. The patient placed in reverse Trendelenburg airplaned to the left. Gallbladder fundus was grasped and noted to be somewhat distended and this was retracted cephalad. The cystic duct and cystic artery were dissected out using [place] electro Bovie cautery. The cystic duct was somewhat thick. Therefore, a 10 mm clip windshield technician necessary to occlude the cystic duct. Two clips placed proximal and one distal and this was used to transect the cystic duct. The cystic artery was also clipped and two proximal clips and one distal clip and this was used to transect the cystic artery. The gallbladder was removed from the gallbladder fossa with hook electro Bovie cautery. The gallbladder was placed in the EndoCatch bag and removed from the abdomen. Suction irrigation used until the effluent was clear. The patient tolerated procedure well. The abdomen was then desufflated and ports were removed under direct visualization. The epigastric 12 port was closed with a 0 Vicryl to the fascia, 4-0 Monocryl used for subcuticular sutures. Sterile strips then placed, sterile dressings. The patient was extubated, taken stable to PACU. MD RICO Solorzano/ /4:05 PM /7:04 PM BENJAMIN
[2016-12-28 20:10] VITALS: BP 124/67; PULSE 66; RESP 16; TEMP 97.1; O2SAT 100
[2016-12-29] VITALS: BP 133/73; PULSE 78; RESP 17; TEMP 97.4; O2SAT 97
[2016-12-29] MEDS: HYDROmorphone HCL PF 1 MG/ML VIAL IV PRN ×2 (03:08→09:21)
[2016-12-29] MEDS: KETOROLAC TROMETHAMINE 30 MG/ML (IVP) VIAL IVP SCH ×3 (03:08→13:54)
[2016-12-29 04:00] VITALS: BP 143/78; PULSE 63; RESP 16; TEMP 97.9; O2SAT 97
[2016-12-29] MEDS: HEPARIN SODIUM - SQ 10,000 UNITS/ML VIAL SQ SCH ×2 (06:29→14:00)
--- NOTE | 2016-12-29 07:46 | HHI.FPPN ---
Subjective Remarks No acute issues overnight. Vitals are stable, patient remains afebrile. She denies any chest pain, shortness of breath, fever, chills, nausea or vomiting. She tolerated two full meals yesterday. She was having some abdominal discomfort post-operatively, but is starting to fell much better. She feels ready to go home today. (Willa Cline MD, R3) Objective Vitals Vital Signs Date Time Temp Pulse Resp B/P (MAP) Pulse Ox O2 Delivery O2 Flow Rate FiO2 12/29/16 04:00 97.9 63 16 143/78 (99) 97 12/29/16 00:00 97.4 78 17 133/73 (93) 97 12/28/16 20:10 97.1 66 16 124/67 (86) 100 12/28/16 16:00 97.0 74 16 115/70 (85) 98 12/28/16 12:00 97.0 58 16 133/74 (93) 98 12/28/16 11:15 98.3 68 16 129/68 (88) 100 Room Air 12/28/16 11:00 65 12 124/67 (86) 100 Room Air 12/28/16 10:45 59 15 129/70 (89) 100 Nasal Cannula 2 12/28/16 10:34 97.9 68 15 125/65 (85) 100 Nasal Cannula 2 12/28/16 08:00 97.2 80 16 120/83 (95) 100 I/O 12/28/16 12/28/16 12/28/16 12/29/16 12/29/16 12/29/16 07:00 15:00 23:00 07:00 15:00 23:00 Intake Total 1480 ml 1240 ml 480 ml 360 ml Output Total 10 ml Balance 1480 ml 1230 ml 480 ml 360 ml Intake Oral 480 ml 240 ml 480 ml 360 ml IV Total 1000 ml 1000 ml Output Urine Total 0 ml Estimated Blood Loss 10 ml # Voids 2 4 2 2 # Bowel Movements 0 0 0 (Willa Cline MD, R3) Result Diagram: 12/27/16 0630 12/27/16 0630 Imaging Last Impressions GI Procedure 12/25/16 0000 Signed Impressions: Service Date/Time: Sunday, December 25, 2016 11:57 - CONCLUSION: ERCP as above. Reggie Gallego MD Gall Bladder Ultrasound 12/24/16 0000 Signed Impressions: Service Date/Time: Saturday, December 24, 2016 14:21 - CONCLUSION: Stone in the neck of the gallbladder with tenderness over the gallbladder. Wall thickness is normal. There is no fluid around the gallbladder. Gordon Vo MD FACR Cholangiopancreatography MRI 12/24/16 0000 Signed Impressions: Service Date/Time: Saturday, December 24, 2016 17:16 - CONCLUSION: Multiple small gallstones and distal common duct stone associated with pancreatitis. Mild gallbladder wall thickening is evident. Gordon Vo MD FACR Objective Remarks GENERAL: Well-nourished, well-developed female in no acute distress. SKIN: Warm and dry. No rashes or lesions. HEAD: Normocephalic. EYES: No scleral icterus. No injection or drainage. NECK: Supple, trachea midline. No JVD or lymphadenopathy. CARDIOVASCULAR: Regular rate and rhythm without murmurs, gallops, or rubs. RESPIRATORY: Breath sounds equal bilaterally. No accessory muscle use. GASTROINTESTINAL: 3 incisions without bleeding or drainage. Abdomen soft, mildly tender to palpation in the upper abdomen, nondistended. Bowel sounds present and active. less pain than on prior exams MUSCULOSKELETAL: No cyanosis, or edema. NEURO: Alert, awake, and oriented x 3. PSYCH: Normal mood and affect. Appropriate insight and judgement. (Willa Cline MD, R3) A/P Assessment and Plan 41-year-old female who presented with acute epigastric pain and was admitted for acute gallstone pancreatitis. She is post cholecystectomy today and is doing well. Discharge Planning Anticipate discharge home today. (Willa Cline MD, R3) Attending Attestation Patient seen and examined. Case reviewed and discussed with the resident team. Agree with plan of care as discussed with me and documented in the resident note. she is doing very well and wishes to go home today. her pain is minimal compared to prior and she is eating a regular diet (Rachna Garcia MD) Problem List: (1) Acute gallstone pancreatitis ICD Codes: K85.10 - Biliary acute pancreatitis without necrosis or infection Status: Acute Plan: Improving. 12/24 gallbladder ultrasound significant for stone in the neck of the gallbladder , normal wall thickness, no surrounding fluid 12/24 MRCP significant for multiple small gallstone daily from extremely high initial levels -AST/ALT and Alk phos continuing to trend down Plan: -GI consulted, appreciate recommendations. ERCP on 12/25 with sphincterotomy and balloon extraction by Dr. Cat. -Gen. surgery consulted- appreciate recommendations, POD#1 s/p lap dinah by Dr. Vaz -Continue to advance diet -DC IV fluids -Toradol 30 mg by mouth every 6 hours -Dilaudid 1 mg IV every 3 hours when necessary breakthrough pain - Zofran 4 mg IV push every 6 hours when necessary nausea vomiting (2) FEN/DVT PPX/GI PPX/Nursing Orders Status: Acute Plan: Fluids: Tolerating PO, will DC fluids Electrolytes: wnl, monitor and replace as needed Nutrition: Clear liquids as tolerated may advance DVT Prophylaxis: Heparin 5000units SQ Q8h and bilateral SCDs History of diet-controlled Gestational Diabetes- Blood glucose stable (Willa Cline MD, R3) Willa Cline MD, R3 Dec 29, 2016 07:46 Rachna Garcia MD Dec 29, 2016 13:54
[2016-12-29 07:47] VITALS: BP 105/59; PULSE 57; RESP 16; TEMP 97; O2SAT 99
[2016-12-29] MEDS ORDERED: PERI8.6T PO (07:49)
[2016-12-29] MEDS ORDERED: ONDA4TAB6 PO (07:49)
[2016-12-29] MEDS ORDERED: KETO10 PO (07:49)
--- NOTE | 2016-12-29 07:49 | HHI.DCPOC ---
Discharge Care Plan Diagnosis: (1) Acute gallstone pancreatitis Goals to Promote Your Health * To prevent worsening of your condition and complications * To maintain your health at the optimal level Directions to Meet Your Goals Take your medications as prescribed Follow your dietary instruction Follow activity as directed Keep your appointments as scheduled Take your immunizations and boosters as scheduled If your symptoms worsen call your PCP, if no PCP go to Urgent Care Center or Emergency Room Smoking is Dangerous to Your Health. Avoid second hand smoke Call the 24-hour hour crisis hotline for domestic abuse at Willa Cline MD, R3 Dec 29, 2016 07:49
[2016-12-29 08:36] LABS: BASOPHIL % 0.5 % (0.0-2.0); EOSINOPHIL # 0.1 TH/MM3 (0-0.4); EOSINOPHIL % 1.6 % (0.0-4.0); HEMATOCRIT 31.5 % (35.0-46.0); HEMO FLAGS DIFF FINAL; LYMPH % 25.5 % (9.0-44.0); LYMPHOCYTE # 1.9 TH/MM3 (1.0-4.8); MEAN CELL VOLUME 73.8 FL (80.0-100.0); MEAN CORPUSCULAR HEMOGLOBIN 22.8 PG (27.0-34.0); MEAN CORPUSCULAR HGB CONC 30.9 % (32.0-36.0); MONO % 4.9 % (0.0-8.0); NEUT % 67.5 % (16.0-70.0); PLATELET COUNT 253 TH/MM3 (150-450); RED BLOOD COUNT 4.26 MIL/MM3 (4.00-5.30); WHITE BLOOD COUNT 7.4 TH/MM3 (4.0-11.0)
[2016-12-29 08:56] LABS: ANION GAP 8 MEQ/L (5-15); AST (GOT) 32 U/L (15-37); BICARBONATE 25.4 MEQ/L (21.0-32.0); BLOOD UREA NITROGEN 8 MG/DL (7-18); CHLORIDE 109 MEQ/L (98-107); GLOMERULAR FILTRATION RATE 97 ML/MIN (>89); POTASSIUM 3.6 MEQ/L (3.5-5.1); SODIUM (NA) 142 MEQ/L (136-145)
[2016-12-29 09:00] LABS: ALKALINE PHOSPHATASE 197 U/L (45-117); ALT (GPT) 96 U/L (10-53); TOTAL BILIRUBIN ADULT 0.3 MG/DL (0.2-1.0)
[2016-12-29] MEDS: SODIUM CHLORIDE 0.9% FLUSH 10 ML FLUSH IV FLUSH SCH (09:00)
--- NOTE | 2016-12-29 09:22 | HHI.DS ---
Discharge Summary Admission Date Dec 24, 2016 at 15:55 Discharge Date: Dec 29, 2016 Admitting Diagnosis gallstone pancreatitis (1) Acute gallstone pancreatitis Diagnosis: Principal Plan: Improving. 12/24 gallbladder ultrasound significant for stone in the neck of the gallbladder , normal wall thickness, no surrounding fluid 12/24 MRCP significant for multiple small gallstone daily from extremely high initial levels -AST/ALT and Alk phos continuing to trend down Plan: -GI consulted, appreciate recommendations. ERCP on 12/25 with sphincterotomy and balloon extraction by Dr. Cat. -Gen. surgery consulted- appreciate recommendations, POD#1 s/p lap dinah by Dr. Vaz -Continue to advance diet -DC IV fluids -Toradol 30 mg by mouth every 6 hours -Dilaudid 1 mg IV every 3 hours when necessary breakthrough pain - Zofran 4 mg IV push every 6 hours when necessary nausea vomiting ICD Codes: K85.10 - Biliary acute pancreatitis without necrosis or infection Status: Acute (2) FEN/DVT PPX/GI PPX/Nursing Orders Plan: Fluids: Tolerating PO, will DC fluids Electrolytes: wnl, monitor and replace as needed Nutrition: Clear liquids as tolerated may advance DVT Prophylaxis: Heparin 5000units SQ Q8h and bilateral SCDs History of diet-controlled Gestational Diabetes- Blood glucose stable Status: Acute Consultants Gastroenterology, general surgery Procedures ERCP with sphincterotomy and balloon extraction on 12/[address] Cat Laparoscopic cholecystectomy on 12/[address] Vaz Brief History On admission: Patient is a 41 year old female, vaginal delivery on who was in her usual state of health until Sunday12/22/16 when she suddenly developed excruciating 15/10 stabbing pain in her epigastric to lower chest region that radiated to her back. Patient states that she was shopping at [employer] with her baby when this pain began. The pain subsided and she was able to carry on with her normal activities and eat dinner until last night around 11 PM when it returned in full force. Today she's had four bouts of vomiting sour white to yellow bilious material. She did not take any pain medications at home and did not measure her temperature. Patient's care was managed by Dr. Matt Leo, PGY 3 at the [facility]. She is within 6 weeks . CBC/BMP: 12/29/16 0822 12/29/16 0822 Significant Findings Laboratory Tests Test 12/27/16 06:30 12/29/16 08:22 Hemoglobin 10.6 GM/DL (11.6-15.3) 9.7 GM/DL (11.6-15.3) Hematocrit 34.5 % (35.0-46.0) 31.5 % (35.0-46.0) Mean Corpuscular Volume 74.5 FL (80.0-100.0) 73.8 FL (80.0-100.0) Mean Corpuscular Hemoglobin 22.8 PG (27.0-34.0) 22.8 PG (27.0-34.0) Mean Corpuscular Hemoglobin Concent 30.6 % (32.0-36.0) 30.9 % (32.0-36.0) Red Cell Distribution Width 20.7 % (11.6-17.2) 21.0 % (11.6-17.2) Neutrophils (%) (Auto) 70.2 % (16.0-70.0) Blood Urea Nitrogen 5 MG/DL (7-18) Total Protein 6.0 GM/DL (6.4-8.2) 5.8 GM/DL (6.4-8.2) Albumin 2.7 GM/DL (3.4-5.0) 2.7 GM/DL (3.4-5.0) Calcium Level 8.2 MG/DL (8.5-10.1) 8.2 MG/DL (8.5-10.1) Alkaline Phosphatase 271 U/L (45-117) 197 U/L (45-117) Aspartate Amino Transf (AST/SGOT) 63 U/L (15-37) Alanine Aminotransferase (ALT/SGPT) 181 U/L (10-53) 96 U/L (10-53) Chloride Level 110 MEQ/L (98-107) 109 MEQ/L (98-107) Lipase 1132 U/L (73-393) Imaging Last Impressions GI Procedure 12/25/16 0000 Signed Impressions: Service Date/Time: Sunday, December 25, 2016 11:57 - CONCLUSION: ERCP as above. Reggie Gallego MD Gall Bladder Ultrasound 12/24/16 0000 Signed Impressions: Service Date/Time: Saturday, December 24, 2016 14:21 - CONCLUSION: Stone in the neck of the gallbladder with tenderness over the gallbladder. Wall thickness is normal. There is no fluid around the gallbladder. Gordon Vo MD FACR Cholangiopancreatography MRI 12/24/16 0000 Signed Impressions: Service Date/Time: Saturday, December 24, 2016 17:16 - CONCLUSION: Multiple small gallstones and distal common duct stone associated with pancreatitis. Mild gallbladder wall thickening is evident. Gordon Vo MD FACR PE at Discharge GENERAL: Well-nourished, well-developed female in no acute distress. SKIN: Warm and dry. No rashes or lesions. HEAD: Normocephalic. EYES: No scleral icterus. No injection or drainage. NECK: Supple, trachea midline. No JVD or lymphadenopathy. CARDIOVASCULAR: Regular rate and rhythm without murmurs, gallops, or rubs. RESPIRATORY: Breath sounds equal bilaterally. No accessory muscle use. GASTROINTESTINAL: 3 incisions without bleeding or drainage. Abdomen soft, mildly tender to palpation in the upper abdomen, nondistended. Bowel sounds present and active. less pain than on prior exams MUSCULOSKELETAL: No cyanosis, or edema. NEURO: Alert, awake, and oriented x 3. PSYCH: Normal mood and affect. Appropriate insight and judgement. Hospital Course Patient is a 41-year-old female at 3 weeks who presented with acute epigastric pain and was admitted for acute gallstone pancreatitis. Imaging as above. Patient had an ERCP performed on 12/25 with sphincterotomy and balloon extraction by counting machine operator, Dr. Cat. After her liver enzymes and lipase appropriately trended downward, she underwent laparoscopic cholecystectomy on 12/[address] Vaz. She was able to advance her diet postoperatively without nausea, vomiting, or other complications. She is discharged home today and will follow-up with her primary care physician and Dr. Vaz in the next 1-2 weeks. Pt Condition on Discharge: Stable Discharge Disposition: Discharge Home Discharge Instructions DIET: Follow Instructions for: Heart Healthy Diet Activities you can perform: Regular-No Restrictions Follow up Referrals: PCP Follow-up - 1 Week with Celso Leo MD, [facility] - 1 Week with Jean Vaz MD New Medications: Ketorolac (Ketorolac) 10 Mg Tab 10 MG PO Q6HR PRN for PAIN, #30 TAB 0 Refills Ondansetron HCl (Ondansetron HCl) 4 Mg Tab 4 MG PO Q6HR, #30 TAB Sennosides-Docusate Sodium (Ruth-Colace) 8.6-50 Mg Tab 2 TAB PO BID PRN for Constipation, #60 TAB 0 Refills Willa Cline MD, [facility] Dec 29, 2016 09:22
[2016-12-29 10:05] VITALS: O2SAT 98
--- NOTE | 2016-12-29 11:24 | HHI.PR ---
Subjective Subjective Notes Resting in bed Tolerated dinner last night Objective Vitals/I&O Vital Signs Date Time Temp Pulse Resp B/P (MAP) Pulse Ox O2 Delivery O2 Flow Rate FiO2 12/29/16 10:05 98 21 12/29/16 07:47 97.0 57 16 105/59 (74) 12/28/16 11:15 Room Air 12/28/16 10:45 2 Labs Laboratory Tests Test 12/29/16 08:22 White Blood Count 7.4 Red Blood Count 4.26 Hemoglobin 9.7 Hematocrit 31.5 Mean Corpuscular Volume 73.8 Mean Corpuscular Hemoglobin 22.8 Mean Corpuscular Hemoglobin Concent 30.9 Red Cell Distribution Width 21.0 Platelet Count 253 Mean Platelet Volume 8.2 Neutrophils (%) (Auto) 67.5 Lymphocytes (%) (Auto) 25.5 Monocytes (%) (Auto) 4.9 Eosinophils (%) (Auto) 1.6 Basophils (%) (Auto) 0.5 Neutrophils # (Auto) 5.0 Lymphocytes # (Auto) 1.9 Monocytes # (Auto) 0.4 Eosinophils # (Auto) 0.1 Basophils # (Auto) 0.0 CBC Comment DIFF FINAL Differential Comment Blood Urea Nitrogen 8 Creatinine 0.67 Random Glucose 101 Total Protein 5.8 Albumin 2.7 Calcium Level 8.2 Alkaline Phosphatase 197 Aspartate Amino Transf (AST/SGOT) 32 Alanine Aminotransferase (ALT/SGPT) 96 Total Bilirubin 0.3 Sodium Level 142 Potassium Level 3.6 Chloride Level 109 Carbon Dioxide Level 25.4 Anion Gap 8 Estimat Glomerular Filtration Rate 97 Lipase 246 Date/Time Source Procedure Growth Status 12/24/16 14:15 Urine Random Urine Urine Culture - Final 10-50,000 CFU/ML MIXED GRAM POSITIVE ... Complete Cardiovascular: Regular Lungs: Clear Abdomen: Other (minimally tender; lap sites c/d/i ) Extremities: No edema A/P Assessment and Plan 41 year old female with GS pancreatitis -POD1 lap dinah -s/p ERCP with stent placement -Follow lipase --normal today -Continue low fat diet -GS clear for DC -Okay to shower -Follow up with Dr. Vaz 1 week Attending Statement patient seen at bedside doing well lipase improved d/c planning Attestation The exam, history, and the medical decision-making described in the above note were completed with the assistance of the mid-level provider. I reviewed and agree with the findings presented. I attest that I had a [id number] encounter with the patient on the same day, and personally performed and documented my assessment and findings in the medical record. Willa Canas Dec 29, 2016 11:24 Jean Vaz MD Jan 09, 2017 10:26
[2016-12-29 11:50] VITALS: BP 119/65; PULSE 68; RESP 16; TEMP 97.4; O2SAT 96
== END 2016-12-29 17:25 | disposition home or self-care (01) | DRG 769 ==
LOC: NEPD 13:34 → NEDA 15:55 → N06B 19:05
PROVIDERS: ADMIT Family Medicine; ATTEND Family Medicine
PROC: 0FC98ZZ Extirpation of Matter from Common Bile Duct, Via Natural or Artificial Opening Endoscopic (ICD-10-PCS; principal; 2016-12-25 11:24)
PROC: 0FT44ZZ Resection of Gallbladder, Percutaneous Endoscopic Approach (ICD-10-PCS; 2016-12-28)
DX: O99.63 Diseases of the digestive system complicating the puerperium (principal); K85.10 Biliary acute pancreatitis without necrosis or infection; O26.63 Liver and biliary tract disorders in the puerperium; K80.70 Calculus of gallbladder and bile duct without cholecystitis without obstruction; K59.00 Constipation, unspecified; O99.215 Obesity complicating the puerperium; E66.9 Obesity, unspecified; Z68.38 Body mass index [BMI] 38.0-38.9, adult
CPT/HCPCS: 74181; 74330; 76377; 76705; 76937; 80053; 81001; 82948; 83690; 85025; 85610; 85730; 87086; 88304; 93005; 96361; 96374; 96375; C1769; J0131; J1170; J1580; J1644; J1885; J2250; J2270; J2405; J2710; J3010; J7030; J7120; Q9967